=== PATIENT | female | born 1995 | race Caucasian/White ===

== ENCOUNTER 2016-03-08 16:54 | Emergency (ER) | payer OTHER ==
[~2016-03-08] VITALS: Ht 157.4 cm; Wt 68.0 kg
[~2016-03-08 16:54] MED LIST: AMITRIPTYLINE10 MG PO; AMOXICILLIN500 M2 PO; AMOXIL500 MG PO; ATARAX25 MG PO; ATIVAN1 MG PO; AUGMENTIN 875 M1 TA1 PO; BACTRIM DS 8001 TA1 PO; BENADRYL25 MG PO; BENTYL10 MG PO; BUSPIRONE HCL7.5 MG PO; CELEBREX100 MG PO; CEPHALEXIN500 M1 PO; CHANTIX START M1 TAB PO; CHANTIX1 M1 PO; CIPRO250 MG PO; COLACE100 MG PO; Carafate1 GM PO; DEPO PROVER150 MG/M1 IM; ELIMITE 5%60 GM PO; ERYTHROMYCIN OPH1 GM OPH; FEROSUL325 MG PO; Fioricet 325 MG1 TAB PO; GEODON20 MG PO; HYDROCODONE BIT1 T11 PO; HYDROXYZINE HCL25 M1 PO; HYDROXYZINE PAM25 M1 PO; IRON1 CHI; KEFLEX500 M1 PO; LATU20TA PO; LATU40TA1 PO; LIDEX 0.05% CRE15 GM T; LOMOTIL 0.025 M1 TA1 PO; LORATADINE-D 11 EACH PO; LORAZEPAM1 MG PO; MEDROL DOSEPAK4 MG PO; MELATONIN PO; MELATONIN5 M1 SL; MELATONIN5 M7 PO; MOTRIN600 MG PO; MOTRIN800 MG PO; NAPROSYN500 MG PO; NKHM; OMEPRAZOLE D/R20 MG PO; Orphenadrine C100 MG PO; PANTOPRAZOLE SO40 MG PO; PEN-VEE K500 MG PO; PREDNISONE20 M1 PO; PRENATAL VITAMI1 TAB PO; PRENATAL1 TA1 PO; PRILOSEC40 M1 PO; SEIZURE MED PO; TRAZODONE50 MG PO; TRIMOX PO; TYLENOL WITH CO1 TA1 PO; VALIUM2 MG PO; VALIUM5 MG PO; VISTARIL25 M2 PO; VISTARIL25 MG PO; VISTARIL50 MG PO; ZOFRAN 4 MG ED2 TAB PO; ZOFRAN ODT4 MG SL; Zofran4 MG PO
[2016-03-08] MEDS ORDERED: AMITRIPTYLINE25 MG PO (17:13)
[2016-03-08] MEDS ORDERED: OMEPRAZOLE40 MG PO (17:13)
[2016-03-08] MEDS ORDERED: VISTARIL50 MG PO (17:13)
[2016-03-08] MEDS ORDERED: DICYCLOMINE HCL20 MG PO (17:13)
[2016-03-08] MEDS ORDERED: AUGMENTIN 875875 MG PO (17:41)
[2016-03-20] MEDS ORDERED: CIPRODEX 0.3%-7.5 ML OT (14:53)
[2016-03-20] MEDS ORDERED: BACTRIM DS 8001 TA1 PO (14:53)
== END 2016-03-08 18:10 | disposition home or self-care (01) ==
LOC: ED 16:54
DX: H65.113 Acute and subacute allergic otitis media (mucoid) (sanguinous) (serous), bilateral (principal); J02.9 Acute pharyngitis, unspecified; F41.9 Anxiety disorder, unspecified; F32.9 Major depressive disorder, single episode, unspecified; F17.200 Nicotine dependence, unspecified, uncomplicated; Z90.49 Acquired absence of other specified parts of digestive tract

== ENCOUNTER → 2016-05-25 | Outpatient (CLI) | payer OTHER ==
[~2016-05-25] MED LIST changes: +AMITRIPTYLINE25 MG PO; +AUGMENTIN 875875 MG PO; +CIPRODEX 0.3%-7.5 ML OT; +DICYCLOMINE HCL20 MG PO; +OMEPRAZOLE40 MG PO
== END | disposition home or self-care (01) ==
LOC: US 14:00
DX: R10.2 Pelvic and perineal pain (principal)

== ENCOUNTER 2016-06-08 19:59 | Emergency (ER) | payer OTHER ==
[~2016-06-08] VITALS: Ht 157.4 cm; Wt 68.0 kg
[2016-06-08] MEDS ORDERED: BENTYL10 MG PO (20:23)
[2016-06-08] MEDS ORDERED: ETODOLAC400 M2 PO (20:24)
[2016-06-08 20:50] LABS: BILIRUBIN 3+ (NEGATIVE); BLOOD NEGATIVE (NEGATIVE); CLARITY CLEAR (CLEAR); COLOR YELLOW (YELLOW); GLUCOSE NEGATIVE (NEGATIVE); KETONE TRACE (NEGATIVE); LEUKO ESTERASE TRACE (NEGATIVE); NITRITE NEGATIVE (NEGATIVE); PH 5.5 (5.0-9.0); PROTEIN NEGATIVE (NEGATIVE); SPECIFIC GRAVITY 1.025 (1.005-1.030)
[2016-06-08 20:58] LABS: BACTERIA TRACE; EPITHELIAL CELLS 0-2; MUCOUS 1+; URINE REFLEX COMMENT YES (NO)
[2016-06-08] MEDS ORDERED: CYCLOBENZAPRINE5 M3 PO (21:44)
[2016-06-08] MEDS ORDERED: Motrin,Rufen800 MG PO (21:44)
== END 2016-06-08 22:07 | disposition home or self-care (01) ==
LOC: ED 19:59
PROVIDERS: Emergency Medicine Emergency Medical Services
DX: S20.229A Contusion of unspecified back wall of thorax, initial encounter (principal); F41.9 Anxiety disorder, unspecified; F32.9 Major depressive disorder, single episode, unspecified; F17.200 Nicotine dependence, unspecified, uncomplicated; Z90.49 Acquired absence of other specified parts of digestive tract; Z79.899 Other long term (current) drug therapy; W22.03XA Walked into furniture, initial encounter; Y93.89 Activity, other specified; Y92.9 Unspecified place or not applicable; Y99.9 Unspecified external cause status

== ENCOUNTER 2016-06-22 09:49 | Emergency (ER) | payer OTHER ==
[~2016-06-22] VITALS: Ht 157.4 cm; Wt 68.0 kg
[~2016-06-22 09:49] MED LIST changes: +CYCLOBENZAPRINE5 M3 PO; +ETODOLAC400 M2 PO; +Motrin,Rufen800 MG PO
== END 2016-06-22 11:21 | disposition home or self-care (01) ==
LOC: ED 09:49
DX: S20.211A Contusion of right front wall of thorax, initial encounter (principal); F41.9 Anxiety disorder, unspecified; F17.200 Nicotine dependence, unspecified, uncomplicated; Z90.49 Acquired absence of other specified parts of digestive tract; W18.30XA Fall on same level, unspecified, initial encounter; Y93.83 Activity, rough housing and horseplay; Y92.9 Unspecified place or not applicable; Y99.9 Unspecified external cause status

== ENCOUNTER 2016-08-02 17:40 | Emergency (ER) | payer OTHER ==
[~2016-08-02] VITALS: Ht 157.4 cm; Wt 68.0 kg
[2016-08-02] MEDS ORDERED: CEPHALEXIN500 M1 PO (18:22)
== END 2016-08-02 18:33 | disposition home or self-care (01) ==
LOC: ED 17:40
DX: L08.9 Local infection of the skin and subcutaneous tissue, unspecified (principal); B96.89 Other specified bacterial agents as the cause of diseases classified elsewhere; K06.8 Other specified disorders of gingiva and edentulous alveolar ridge; F17.200 Nicotine dependence, unspecified, uncomplicated; Z79.899 Other long term (current) drug therapy

== ENCOUNTER 2016-08-04 10:30 | Emergency (ER) | payer OTHER ==
[~2016-08-04] VITALS: Wt 68.0 kg
[2016-08-04 11:31] LABS: BASO % 0.3 % (0.0-1.0); EOS # 0.1 10*3/uL (0.0-0.4); EOS % 0.8 % (1.0-4.0); HEMATOCRIT 43.3 % (37.0-47.0); HEMOGLOBIN 14.7 g/dl (12.0-16.0); IG # 0.1 10*3/uL (0.0-0.1); LYMPH # 3.4 10*3/uL (1.3-4.4); LYMPH % 28.3 % (27.0-41.0); MEAN CELL VOLUME 83.6 fl (81.0-99.0); MEAN CORPUSCULAR HGB 28.4 pg (27.0-31.0); MEAN CORPUSCULAR HGB CONC 33.9 g/dl (33.0-37.0); MEAN PLATELET VOLUME 9.9 fl (9.6-12.3); MONO # 0.6 10*3/uL (0.1-1.0); MONO % 4.5 % (3.0-9.0); NEUT # 7.9 10*3/uL (2.3-7.9); NEUT % 65.7 % (47.0-73.0); PLATELET COUNT AUTOMATED 173 10*3/uL (130-400); RED BLOOD COUNT 5.18 10*6/uL (4.10-5.10); RED CELL DISTRI WIDTH 13.6 % (0-14.5); WHITE BLOOD COUNT 12.1 10*3/uL (4.8-10.8)
[2016-08-04 11:53] LABS: ALBUMIN 3.6 gm/dl (3.1-4.5); ALKALINE PHOSPHATASE 87 U/L (45-117); BILIRUBIN, TOTAL 0.4 mg/dl (0.2-1.0); BUN 11 mg/dl (7-24); CARBON DIOXIDE 25 mmol/L (21-32); CHLORIDE 107 mmol/L (98-107); EST GLOM FILT AFRICAN AMERICAN > 60 ml/min; GLUCOSE 146 mg/dL (65-99); POTASSIUM 3.8 mmol/L (3.5-5.1); SGOT/AST 61 IU/L (3-35); SGPT/ALT 81 U/L (12-78); SODIUM 140 mmol/L (136-145); TOTAL PROTEIN 6.7 gm/dL (6.4-8.2)
== END 2016-08-04 12:46 | disposition home or self-care (01) ==
LOC: ED 10:30
PROVIDERS: Registered Nurse
DX: R60.9 Edema, unspecified (principal); F17.200 Nicotine dependence, unspecified, uncomplicated; Z90.49 Acquired absence of other specified parts of digestive tract

== ENCOUNTER 2016-08-15 17:55 | Emergency (ER) | payer OTHER ==
[~2016-08-15] VITALS: Wt 77.1 kg
[2016-08-15] MEDS ORDERED: NAPROSYN500 MG PO (18:04)
== END 2016-08-15 19:22 | disposition home or self-care (01) ==
LOC: ED 17:55
DX: S93.431A Sprain of tibiofibular ligament of right ankle, initial encounter (principal); F17.200 Nicotine dependence, unspecified, uncomplicated; Z90.49 Acquired absence of other specified parts of digestive tract; X50.9XXA Other and unspecified overexertion or strenuous movements or postures, initial encounter; Y93.01 Activity, walking, marching and hiking; Y92.9 Unspecified place or not applicable; Y99.9 Unspecified external cause status

== ENCOUNTER 2016-08-23 19:16 | Emergency (ER) | payer OTHER ==
[~2016-08-23] VITALS: Ht 157.4 cm; Wt 77.1 kg
== END 2016-08-23 20:21 | disposition home or self-care (01) ==
LOC: ED 19:16
DX: S93.401A Sprain of unspecified ligament of right ankle, initial encounter (principal); F17.200 Nicotine dependence, unspecified, uncomplicated; Z79.899 Other long term (current) drug therapy; X58.XXXA Exposure to other specified factors, initial encounter; Y93.01 Activity, walking, marching and hiking; Y92.89 Other specified places as the place of occurrence of the external cause; Y99.9 Unspecified external cause status

== ENCOUNTER 2016-08-24 20:47 | Emergency (ER) | payer OTHER ==
[~2016-08-24] VITALS: Ht 157.4 cm; Wt 77.1 kg
== END 2016-08-24 21:31 | disposition home or self-care (01) ==
LOC: ED 20:47
DX: M25.571 Pain in right ankle and joints of right foot (principal); F17.200 Nicotine dependence, unspecified, uncomplicated; Z90.49 Acquired absence of other specified parts of digestive tract; Z79.899 Other long term (current) drug therapy

== ENCOUNTER → 2016-09-13 | Outpatient (CLI) | payer OTHER | END | disposition home or self-care (01) | LOC: US 15:01 | DX: M79.661 Pain in right lower leg (principal); R60.0 Localized edema; R10.9 Unspecified abdominal pain; M79.662 Pain in left lower leg ==

== ENCOUNTER 2016-09-21 20:22 | Emergency (ER) | payer OTHER ==
[~2016-09-21] VITALS: Ht 157.4 cm; Wt 77.1 kg
[2016-09-21] MEDS ORDERED: MOBIC15 MG PO (21:52)
== END 2016-09-21 22:08 | disposition home or self-care (01) ==
LOC: ED 20:22
DX: S93.401A Sprain of unspecified ligament of right ankle, initial encounter (principal); S93.402A Sprain of unspecified ligament of left ankle, initial encounter; Z79.899 Other long term (current) drug therapy; W22.8XXA Striking against or struck by other objects, initial encounter; Y93.9 Activity, unspecified; Y92.9 Unspecified place or not applicable; Y99.9 Unspecified external cause status

== ENCOUNTER 2016-10-05 12:46 | Emergency (ER) | payer OTHER ==
[~2016-10-05] VITALS: Wt 68.0 kg
[~2016-10-05 12:46] MED LIST changes: +MOBIC15 MG PO
[2016-10-05 13:24] LABS: BILIRUBIN NEGATIVE (NEGATIVE); BLOOD NEGATIVE (NEGATIVE); CLARITY CLEAR (CLEAR); COLOR YELLOW (YELLOW); GLUCOSE NEGATIVE (NEGATIVE); KETONE NEGATIVE (NEGATIVE); LEUKO ESTERASE TRACE (NEGATIVE); NITRITE NEGATIVE (NEGATIVE); UROBILINOGEN 0.2 E.U./dl (0.2-1.0)
[2016-10-05 13:32] LABS: BACTERIA 1+
[2016-10-05 15:02] LABS: BASO # 0.1 10*3/uL (0.0-0.1); BASO % 0.4 % (0.0-1.0); EOS # 0.1 10*3/uL (0.0-0.4); EOS % 0.4 % (1.0-4.0); HEMATOCRIT 46.1 % (37.0-47.0); HEMOGLOBIN 15.5 g/dl (12.0-16.0); LYMPH # 3.5 10*3/uL (1.3-4.4); MEAN CELL VOLUME 83.8 fl (81.0-99.0); MEAN CORPUSCULAR HGB 28.2 pg (27.0-31.0); MEAN CORPUSCULAR HGB CONC 33.6 g/dl (33.0-37.0); MEAN PLATELET VOLUME 10.2 fl (9.6-12.3); MONO # 0.5 10*3/uL (0.1-1.0); MONO % 3.9 % (3.0-9.0); NEUT # 8.7 10*3/uL (2.3-7.9); NEUT % 67.8 % (47.0-73.0); PLATELET COUNT AUTOMATED 215 10*3/uL (130-400); RED CELL DISTRI WIDTH 13.6 % (0-14.5); WHITE BLOOD COUNT 12.8 10*3/uL (4.8-10.8)
[2016-10-05 15:18] LABS: ALBUMIN 3.9 gm/dl (3.1-4.5); ALKALINE PHOSPHATASE 96 U/L (45-117); BUN 10 mg/dl (7-24); CHLORIDE 108 mmol/L (98-107); LIPASE 140 U/L (73-393); POTASSIUM 3.5 mmol/L (3.5-5.1); SGOT/AST 15 IU/L (3-35); SGPT/ALT 29 U/L (12-78); SODIUM 139 mmol/L (136-145); TOTAL PROTEIN 7.9 gm/dL (6.4-8.2)
[2016-10-05] MEDS ORDERED: ZOFRAN ODT4 MG SL (16:37)
== END 2016-10-05 18:19 | disposition home or self-care (01) ==
LOC: ED 12:46
PROVIDERS: Emergency Medicine; Physician Assistant
DX: K52.9 Noninfective gastroenteritis and colitis, unspecified (principal); F17.200 Nicotine dependence, unspecified, uncomplicated; Z90.49 Acquired absence of other specified parts of digestive tract; Z79.899 Other long term (current) drug therapy

== ENCOUNTER 2016-10-19 20:11 | Emergency (ER) | payer OTHER ==
[~2016-10-19] VITALS: Ht 157.4 cm; Wt 68.0 kg
== END 2016-10-19 21:48 | disposition home or self-care (01) ==
LOC: ED 20:11
DX: G89.29 Other chronic pain (principal); M79.673 Pain in unspecified foot; F17.200 Nicotine dependence, unspecified, uncomplicated; Z79.899 Other long term (current) drug therapy

== ENCOUNTER 2016-11-23 14:55 | Emergency (ER) | payer OTHER ==
[~2016-11-23] VITALS: Wt 77.1 kg
[2016-11-23 16:05] LABS: BASO % 0.3 % (0.0-1.0); EOS # 0.1 10*3/uL (0.0-0.4); EOS % 0.9 % (1.0-4.0); HEMATOCRIT 42.4 % (37.0-47.0); LYMPH # 4.2 10*3/uL (1.3-4.4); MEAN CELL VOLUME 83.6 fl (81.0-99.0); MEAN CORPUSCULAR HGB 27.6 pg (27.0-31.0); MEAN PLATELET VOLUME 10.7 fl (9.6-12.3); MONO # 0.6 10*3/uL (0.1-1.0); MONO % 4.9 % (3.0-9.0); NEUT # 6.8 10*3/uL (2.3-7.9); NEUT % 57.6 % (47.0-73.0); PLATELET COUNT AUTOMATED 209 10*3/uL (130-400); RED BLOOD COUNT 5.07 10*6/uL (4.10-5.10); WHITE BLOOD COUNT 11.7 10*3/uL (4.8-10.8)
[2016-11-23 16:16] LABS: INTERNATIONAL NORM RATIO 0.9 (2.0-3.5)
[2016-11-23 16:23] LABS: ALBUMIN 3.1 gm/dl (3.1-4.5); ALKALINE PHOSPHATASE 83 U/L (45-117); BUN 8 mg/dl (7-24); CHLORIDE 110 mmol/L (98-107); CREATININE 0.87 mg/dL (0.55-1.02); MAGNESIUM 2.2 mg/dL (1.5-2.1); POTASSIUM 3.7 mmol/L (3.5-5.1); SGOT/AST 36 IU/L (3-35); SGPT/ALT 43 U/L (12-78); SODIUM 143 mmol/L (136-145); TOTAL PROTEIN 6.6 gm/dL (6.4-8.2)
[2016-11-23 16:30] LABS: B-hCG (QUALITATIVE) NEGATIVE (NEGATIVE)
[2016-11-23 16:31] LABS: TROPONIN I < 0.015 ng/ml (<0.045)
[2016-11-23 17:08] LABS: BILIRUBIN NEGATIVE (NEGATIVE); BLOOD NEGATIVE (NEGATIVE); CLARITY SL CLOUDY (CLEAR); COLOR YELLOW (YELLOW); GLUCOSE NEGATIVE (NEGATIVE); KETONE NEGATIVE (NEGATIVE); LEUKO ESTERASE 1+ (NEGATIVE); NITRITE NEGATIVE (NEGATIVE)
[2016-11-23 17:32] LABS: URINE AMPHETAMINES < 1000 (1000ng/ml); URINE BARBITURATES < 200 (200ng/ml); URINE BENZODIAZEPINES > 200 (200ng/ml); URINE CANNABINOIDS (THC) < 50 (50ng/ml); URINE COCAINE < 300 (300ng/ml); URINE METHADONE < 300 (300ng/ml); URINE OPIATES < 300 (300ng/ml)
[2016-11-23 17:33] LABS: URINE PHENCYCLIDINE < 25 (25ng/ml)
[2016-11-23 17:40] LABS: BACTERIA 1+; RBC 0-2 rbc/hpf (0-2)
== END 2016-11-23 20:33 | disposition home or self-care (01) ==
LOC: ED 14:55
PROVIDERS: Internal Medicine
DX: R42 Dizziness and giddiness (principal); F17.210 Nicotine dependence, cigarettes, uncomplicated

== ENCOUNTER → 2016-12-21 | Outpatient (CLI) | payer OTHER ==
[2016-12-21 08:04] LABS: FREE T4 1.4 ng/dl (0.76-1.46)
[2016-12-21 08:14] LABS: THYROID STIM HORMONE (HS) 4.04 uIU/ml (0.358-4.75)
[2016-12-22 07:04] LABS: HEPATITIS B SURFACE AG Negative (Negative); HEPATITIS C VIRUS ANTIBODY <0.1 s/co (0.0-0.9)
== END | disposition home or self-care (01) ==
LOC: LAB 07:04 → US 07:30
PROVIDERS: Family Medicine
DX: K76.0 Fatty (change of) liver, not elsewhere classified (principal); R55 Syncope and collapse; Z90.49 Acquired absence of other specified parts of digestive tract

== ENCOUNTER 2017-01-10 12:21 | Emergency (ER) | payer OTHER ==
[~2017-01-10] VITALS: Wt 79.8 kg
[2017-01-10 13:17] LABS: BILIRUBIN NEGATIVE (NEGATIVE); BLOOD NEGATIVE (NEGATIVE); CLARITY CLEAR (CLEAR); COLOR YELLOW (YELLOW); GLUCOSE NEGATIVE (NEGATIVE); KETONE NEGATIVE (NEGATIVE); LEUKO ESTERASE 2+ (NEGATIVE); NITRITE NEGATIVE (NEGATIVE); PH 5.5 (5.0-9.0); SPECIFIC GRAVITY <= 1.005 (1.005-1.030); UROBILINOGEN 0.2 E.U./dl (0.2-1.0)
[2017-01-10 13:28] LABS: BACTERIA 2+; RBC 0-2 rbc/hpf (0-2); WBC 16-20 wbc/hpf (0-5)
[2017-01-10] MEDS ORDERED: DIFLUCAN150 MG PO (13:44)
[2017-01-10] MEDS ORDERED: OMNICEF300 MG PO (13:44)
[2017-01-10] MEDS ORDERED: PYRIDIUM200 M1 PO (13:44)
== END 2017-01-10 13:53 | disposition home or self-care (01) ==
LOC: ED 12:21
PROVIDERS: Nurse Practitioner Family
DX: H66.92 Otitis media, unspecified, left ear (principal); N39.0 Urinary tract infection, site not specified; F17.200 Nicotine dependence, unspecified, uncomplicated; L29.8 Other pruritus

== ENCOUNTER 2017-03-09 09:38 | Emergency (ER) | payer OTHER ==
[~2017-03-09] VITALS: Wt 72.6 kg
[~2017-03-09 09:38] MED LIST changes: +DIFLUCAN150 MG PO; +OMNICEF300 MG PO; +PYRIDIUM200 M1 PO
[2017-03-09 10:31] LABS: BASO % 0.3 % (0.0-1.0); EOS # 0.1 10*3/uL (0.0-0.4); EOS % 0.6 % (1.0-4.0); HEMATOCRIT 44.2 % (37.0-47.0); LYMPH % 34.3 % (27.0-41.0); MEAN CELL VOLUME 83.1 fl (81.0-99.0); MEAN CORPUSCULAR HGB 28.2 pg (27.0-31.0); MEAN CORPUSCULAR HGB CONC 33.9 g/dl (33.0-37.0); MEAN PLATELET VOLUME 10.6 fl (9.6-12.3); MONO # 0.6 10*3/uL (0.1-1.0); MONO % 5.1 % (3.0-9.0); NEUT # 6.9 10*3/uL (2.3-7.9); NEUT % 59.4 % (47.0-73.0); PLATELET COUNT AUTOMATED 212 10*3/uL (130-400); RED BLOOD COUNT 5.32 10*6/uL (4.10-5.10); RED CELL DISTRI WIDTH 13.9 % (0-14.5); WHITE BLOOD COUNT 11.6 10*3/uL (4.8-10.8)
[2017-03-09 10:45] LABS: ALBUMIN 3.4 gm/dl (3.1-4.5); ALKALINE PHOSPHATASE 78 U/L (45-117); BUN 10 mg/dl (7-24); CHLORIDE 107 mmol/L (98-107); POTASSIUM 3.6 mmol/L (3.5-5.1); SGOT/AST 15 IU/L (3-35); SGPT/ALT 24 U/L (12-78); SODIUM 138 mmol/L (136-145); TOTAL PROTEIN 7.1 gm/dL (6.4-8.2)
[2017-03-09] MEDS ORDERED: PREDNISONE20 M1 PO (12:02)
[2017-03-09] MEDS ORDERED: AMOXICILLIN500 M2 PO (12:02)
[2017-03-09] MEDS ORDERED: ROBITUSSIN DM 105 ML PO (12:02)
== END 2017-03-09 12:03 | disposition home or self-care (01) ==
LOC: ED 09:38
PROVIDERS: Nurse Practitioner Family
DX: J20.9 Acute bronchitis, unspecified (principal); H92.03 Otalgia, bilateral; R07.81 Pleurodynia; F17.200 Nicotine dependence, unspecified, uncomplicated

== ENCOUNTER 2017-04-09 17:21 | Emergency (ER) | payer OTHER ==
[~2017-04-09] VITALS: Ht 157.4 cm; Wt 68.0 kg
[~2017-04-09 17:21] MED LIST changes: +ROBITUSSIN DM 105 ML PO
[2017-04-09] MEDS ORDERED: PREVACID30 M2 PO (17:45)
[2017-04-09 18:26] LABS: BASO % 0.3 % (0.0-1.0); EOS # 0.1 10*3/uL (0.0-0.4); EOS % 0.9 % (1.0-4.0); HEMATOCRIT 42.9 % (37.0-47.0); HEMOGLOBIN 14.2 g/dl (12.0-16.0); LYMPH # 4.1 10*3/uL (1.3-4.4); LYMPH % 34.9 % (27.0-41.0); MEAN CELL VOLUME 84.1 fl (81.0-99.0); MEAN CORPUSCULAR HGB 27.8 pg (27.0-31.0); MEAN CORPUSCULAR HGB CONC 33.1 g/dl (33.0-37.0); MEAN PLATELET VOLUME 10.4 fl (9.6-12.3); MONO # 0.5 10*3/uL (0.1-1.0); MONO % 4.6 % (3.0-9.0); NEUT # 6.9 10*3/uL (2.3-7.9); PLATELET COUNT AUTOMATED 223 10*3/uL (130-400); RED CELL DISTRI WIDTH 13.6 % (0-14.5); WHITE BLOOD COUNT 11.6 10*3/uL (4.8-10.8)
[2017-04-09 18:37] LABS: ACT PARTIAL THROMBO TIME 23.1 SECONDS (20.8-31.5); INTERNATIONAL NORM RATIO 0.9 (2.0-3.5)
[2017-04-09 18:42] LABS: ALBUMIN 3.4 gm/dl (3.1-4.5); ALKALINE PHOSPHATASE 85 U/L (45-117); BUN 5 mg/dl (7-24); CHLORIDE 108 mmol/L (98-107); CREATININE 0.73 mg/dL (0.55-1.02); LIPASE 127 U/L (73-393); POTASSIUM 3.7 mmol/L (3.5-5.1); SGOT/AST 10 IU/L (3-35); SGPT/ALT 22 U/L (12-78); SODIUM 139 mmol/L (136-145); TOTAL PROTEIN 7.1 gm/dL (6.4-8.2); TROPONIN I < 0.015 ng/ml (<0.045)
[2017-04-09 18:57] LABS: BILIRUBIN NEGATIVE (NEGATIVE); BLOOD NEGATIVE (NEGATIVE); CLARITY SL CLOUDY (CLEAR); COLOR YELLOW (YELLOW); GLUCOSE NEGATIVE (NEGATIVE); KETONE NEGATIVE (NEGATIVE); LEUKO ESTERASE 1+ (NEGATIVE); NITRITE NEGATIVE (NEGATIVE); SPECIFIC GRAVITY >= 1.030 (1.005-1.030); UROBILINOGEN 0.2 E.U./dl (0.2-1.0)
[2017-04-09 19:04] LABS: BACTERIA 1+
[2017-04-09 19:07] LABS: URINE AMPHETAMINES < 1000 (1000ng/ml); URINE BARBITURATES < 200 (200ng/ml); URINE BENZODIAZEPINES > 200 (200ng/ml); URINE CANNABINOIDS (THC) < 50 (50ng/ml); URINE COCAINE < 300 (300ng/ml); URINE METHADONE < 300 (300ng/ml); URINE OPIATES < 300 (300ng/ml); URINE PHENCYCLIDINE < 25 (25ng/ml)
[2017-04-09] MEDS ORDERED: CIPRO500 MG PO (20:14)
== END 2017-04-09 20:13 | disposition home or self-care (01) ==
LOC: ED 17:21
PROVIDERS: Nurse Practitioner Family
DX: N39.0 Urinary tract infection, site not specified (principal); R00.0 Tachycardia, unspecified; F41.9 Anxiety disorder, unspecified; F32.9 Major depressive disorder, single episode, unspecified; F17.200 Nicotine dependence, unspecified, uncomplicated; Z90.49 Acquired absence of other specified parts of digestive tract; Z79.899 Other long term (current) drug therapy

== ENCOUNTER 2017-04-13 20:13 | Emergency (ER) | payer OTHER ==
[~2017-04-13] VITALS: Ht 157.4 cm; Wt 68.0 kg
[~2017-04-13 20:13] MED LIST changes: +CIPRO500 MG PO; +PREVACID30 M2 PO
[2017-04-13 20:31] LABS: BILIRUBIN NEGATIVE (NEGATIVE); BLOOD NEGATIVE (NEGATIVE); CLARITY SL CLOUDY (CLEAR); COLOR YELLOW (YELLOW); GLUCOSE NEGATIVE (NEGATIVE); KETONE NEGATIVE (NEGATIVE); LEUKO ESTERASE NEGATIVE (NEGATIVE); NITRITE NEGATIVE (NEGATIVE); UROBILINOGEN 0.2 E.U./dl (0.2-1.0)
[2017-04-13 20:47] LABS: BACTERIA 1+; MUCOUS TRACE; RBC 0-2 rbc/hpf (0-2)
[2017-04-13 20:49] LABS: BASO % 0.4 % (0.0-1.0); EOS # 0.1 10*3/uL (0.0-0.4); EOS % 0.8 % (1.0-4.0); HEMATOCRIT 42.7 % (37.0-47.0); HEMOGLOBIN 14.3 g/dl (12.0-16.0); LYMPH % 35.6 % (27.0-41.0); MEAN CELL VOLUME 83.4 fl (81.0-99.0); MEAN CORPUSCULAR HGB 27.9 pg (27.0-31.0); MEAN CORPUSCULAR HGB CONC 33.5 g/dl (33.0-37.0); MEAN PLATELET VOLUME 10.5 fl (9.6-12.3); MONO # 0.6 10*3/uL (0.1-1.0); MONO % 5.2 % (3.0-9.0); NEUT # 6.5 10*3/uL (2.3-7.9); NEUT % 57.6 % (47.0-73.0); PLATELET COUNT AUTOMATED 208 10*3/uL (130-400); RED BLOOD COUNT 5.12 10*6/uL (4.10-5.10); RED CELL DISTRI WIDTH 13.6 % (0-14.5); WHITE BLOOD COUNT 11.3 10*3/uL (4.8-10.8)
[2017-04-13 21:05] LABS: ALBUMIN 3.4 gm/dl (3.1-4.5); ALKALINE PHOSPHATASE 82 U/L (45-117); BUN 7 mg/dl (7-24); CHLORIDE 106 mmol/L (98-107); CREATININE 0.73 mg/dL (0.55-1.02); LIPASE 129 U/L (73-393); POTASSIUM 3.4 mmol/L (3.5-5.1); SGOT/AST 16 IU/L (3-35); SODIUM 139 mmol/L (136-145); TOTAL PROTEIN 7.1 gm/dL (6.4-8.2)
[2017-04-13 21:06] LABS: SGPT/ALT 22 U/L (12-78)
[2017-04-13] MEDS ORDERED: DICYCLOMINE HYD20 MG PO (22:24)
== END 2017-04-13 22:13 | disposition home or self-care (01) ==
LOC: ED 20:13
PROVIDERS: Emergency Medicine; Physician Assistant
DX: R10.84 Generalized abdominal pain (principal); F17.200 Nicotine dependence, unspecified, uncomplicated; Z79.899 Other long term (current) drug therapy; Z90.49 Acquired absence of other specified parts of digestive tract

== ENCOUNTER 2017-04-27 22:46 | Emergency (ER) | payer OTHER ==
[~2017-04-27] VITALS: Ht 157.4 cm; Wt 77.1 kg
[~2017-04-27 22:46] MED LIST changes: +DICYCLOMINE HYD20 MG PO
[2017-04-27 23:26] LABS: BILIRUBIN NEGATIVE (NEGATIVE); BLOOD 3+ (NEGATIVE); CLARITY CLOUDY (CLEAR); COLOR YELLOW (YELLOW); GLUCOSE NEGATIVE (NEGATIVE); KETONE NEGATIVE (NEGATIVE); LEUKO ESTERASE 2+ (NEGATIVE); NITRITE NEGATIVE (NEGATIVE); PH 5.5 (5.0-9.0); SPECIFIC GRAVITY >= 1.030 (1.005-1.030); UROBILINOGEN 0.2 E.U./dl (0.2-1.0)
[2017-04-27 23:27] LABS: BASO # 0.1 10*3/uL (0.0-0.1); BASO % 0.5 % (0.0-1.0); EOS # 0.1 10*3/uL (0.0-0.4); EOS % 0.5 % (1.0-4.0); HEMATOCRIT 43.2 % (37.0-47.0); HEMOGLOBIN 14.4 g/dl (12.0-16.0); LYMPH # 4.1 10*3/uL (1.3-4.4); LYMPH % 36.3 % (27.0-41.0); MEAN CELL VOLUME 82.6 fl (81.0-99.0); MEAN CORPUSCULAR HGB 27.5 pg (27.0-31.0); MEAN CORPUSCULAR HGB CONC 33.3 g/dl (33.0-37.0); MEAN PLATELET VOLUME 10.6 fl (9.6-12.3); MONO # 0.5 10*3/uL (0.1-1.0); MONO % 4.5 % (3.0-9.0); NEUT # 6.5 10*3/uL (2.3-7.9); NEUT % 57.9 % (47.0-73.0); PLATELET COUNT AUTOMATED 211 10*3/uL (130-400); RED BLOOD COUNT 5.23 10*6/uL (4.10-5.10); RED CELL DISTRI WIDTH 13.9 % (0-14.5); WHITE BLOOD COUNT 11.2 10*3/uL (4.8-10.8)
[2017-04-27 23:33] LABS: BACTERIA 3+; EPITHELIAL CELLS 0-2; RBC TNTC rbc/hpf (0-2); WBC TNTC wbc/hpf (0-5)
[2017-04-27 23:34] LABS: MUCOUS TRACE
[2017-04-28] MEDS ORDERED: CIPRO500 MG PO (01:07)
[2017-04-28] MEDS ORDERED: FLAGYL500 MG PO (01:07)
[2017-05-01 04:03] LABS: GONOCOCCUS BY NAA Negative (Negative)
== END 2017-04-28 01:10 | disposition home or self-care (01) ==
LOC: ED 22:46
PROVIDERS: Emergency Medicine
DX: N39.0 Urinary tract infection, site not specified (principal); A59.9 Trichomoniasis, unspecified; G89.29 Other chronic pain

== ENCOUNTER → 2017-05-26 | Outpatient (CLI) | payer OTHER ==
[~2017-05-26] MED LIST changes: +FLAGYL500 MG PO; +NYST SUSP PO
== END | disposition home or self-care (01) ==
LOC: RAD 14:34 → EDSTATUS 14:37
DX: M54.5 Low back pain (principal)

== ENCOUNTER 2017-05-27 10:16 | Emergency (ER) | payer OTHER ==
[~2017-05-27] VITALS: Ht 162.5 cm; Wt 77.1 kg
[~2017-05-27 10:16] MED LIST changes: -NYST SUSP PO
[2017-05-27] MEDS ORDERED: AMOXICILLIN500 M2 PO (11:10)
[2017-05-27] MEDS ORDERED: NYST SUSP PO (11:10)
== END 2017-05-27 11:18 | disposition home or self-care (01) ==
LOC: ED 10:16
DX: B37.0 Candidal stomatitis (principal); J06.9 Acute upper respiratory infection, unspecified; Z79.899 Other long term (current) drug therapy

== ENCOUNTER 2017-06-07 17:19 | Emergency (ER) | payer OTHER ==
[~2017-06-07] VITALS: Ht 160 cm; Wt 81.2 kg
== END 2017-06-07 18:01 | disposition home or self-care (01) ==
LOC: ED 17:19
DX: L25.1 Unspecified contact dermatitis due to drugs in contact with skin (principal); F17.200 Nicotine dependence, unspecified, uncomplicated; Z79.899 Other long term (current) drug therapy

== ENCOUNTER → 2017-06-07 | Outpatient (CLI) | payer OTHER ==
[~2017-06-07] MED LIST changes: +NYST SUSP PO
--- NOTE | ~2017-06-07 | HM ---
[place], [place] HOLTER MONITOR REPORT NAME: GISSELLE RODRIGUES UNIT #: [id number] ROOM: DOCTOR: MAGDALENE FINCH MD BIRTHDATE: [birth year] DOS: A 24-HOUR HOLTER MONITOR REPORT The study was recorded from June 07 through 06/08/2017. The data was analyzed and the report was dictated on 06/08/2017. INDICATIONS: Tachycardia. FINDINGS: The patient was in sinus tachycardia or sinus rhythm during the entire examination. Her average heart rate was 121 in sinus rhythm. Her heart rate varied from 65 beats per minute at 4:08 a.m. to 162 beats per minute at 8:16 a.m. No ventricular arrhythmias were recorded. There was some sinus arrhythmia and rare PACs were seen. No diary was submitted. IMPRESSION: Sinus tachycardia with average 24-hour heart rate of 121. MAGDALENE FINCH MD CM:HOLTER:HOLTER MONITOR REPORT 13 [phone] MAGDALENE FINCH MD
== END | disposition home or self-care (01) ==
LOC: LAB 00:37 → CARD 10:00 → LAB 10:00
PROVIDERS: Internal Medicine Cardiovascular Disease
DX: R00.2 Palpitations (principal); R00.0 Tachycardia, unspecified

== ENCOUNTER 2017-06-09 22:06 | Emergency (ER) | payer OTHER ==
[~2017-06-09] VITALS: Ht 160 cm; Wt 77.1 kg
[2017-06-09 23:09] LABS: BASO % 0.4 % (0.0-1.0); EOS # 0.1 10*3/uL (0.0-0.4); EOS % 1.1 % (1.0-4.0); HEMATOCRIT 42.4 % (37.0-47.0); HEMOGLOBIN 13.8 g/dl (12.0-16.0); LYMPH # 4.7 10*3/uL (1.3-4.4); LYMPH % 41.9 % (27.0-41.0); MEAN CELL VOLUME 83.5 fl (81.0-99.0); MEAN CORPUSCULAR HGB 27.2 pg (27.0-31.0); MEAN CORPUSCULAR HGB CONC 32.5 g/dl (33.0-37.0); MEAN PLATELET VOLUME 10.2 fl (9.6-12.3); MONO # 0.6 10*3/uL (0.1-1.0); MONO % 5.6 % (3.0-9.0); NEUT # 5.7 10*3/uL (2.3-7.9); NEUT % 50.6 % (47.0-73.0); PLATELET COUNT AUTOMATED 201 10*3/uL (130-400); RED BLOOD COUNT 5.08 10*6/uL (4.10-5.10); RED CELL DISTRI WIDTH 13.8 % (0-14.5); WHITE BLOOD COUNT 11.2 10*3/uL (4.8-10.8)
[2017-06-09 23:21] LABS: INTERNATIONAL NORM RATIO 0.9 (2.0-3.5)
[2017-06-09 23:25] LABS: ALBUMIN 3.6 gm/dl (3.1-4.5); ALKALINE PHOSPHATASE 91 U/L (45-117); BUN 8 mg/dl (7-24); CHLORIDE 106 mmol/L (98-107); CREATININE 0.73 mg/dL (0.55-1.02); POTASSIUM 3.5 mmol/L (3.5-5.1); SGOT/AST 15 IU/L (3-35); SGPT/ALT 28 U/L (12-78); SODIUM 140 mmol/L (136-145); TOTAL PROTEIN 7.1 gm/dL (6.4-8.2)
[2017-06-09 23:26] LABS: TROPONIN I < 0.015 ng/ml (<0.045)
== END 2017-06-09 23:59 | disposition home or self-care (01) ==
LOC: ED 22:06
PROVIDERS: Physician Assistant
DX: R00.0 Tachycardia, unspecified (principal)

== ENCOUNTER 2017-06-29 12:35 | Emergency (ER) | payer OTHER ==
[~2017-06-29] VITALS: Ht 160 cm; Wt 77.1 kg
[2017-06-29 13:26] LABS: BASO # 0.1 10*3/uL (0.0-0.1); BASO % 0.5 % (0.0-1.0); EOS # 0.1 10*3/uL (0.0-0.4); EOS % 0.8 % (1.0-4.0); HEMATOCRIT 41.6 % (37.0-47.0); LYMPH # 3.9 10*3/uL (1.3-4.4); LYMPH % 36.7 % (27.0-41.0); MEAN CELL VOLUME 81.9 fl (81.0-99.0); MEAN CORPUSCULAR HGB 27.6 pg (27.0-31.0); MEAN CORPUSCULAR HGB CONC 33.7 g/dl (33.0-37.0); MEAN PLATELET VOLUME 10.5 fl (9.6-12.3); MONO # 0.5 10*3/uL (0.1-1.0); MONO % 4.9 % (3.0-9.0); NEUT % 56.7 % (47.0-73.0); PLATELET COUNT AUTOMATED 222 10*3/uL (130-400); RED BLOOD COUNT 5.08 10*6/uL (4.10-5.10); RED CELL DISTRI WIDTH 13.9 % (0-14.5); WHITE BLOOD COUNT 10.7 10*3/uL (4.8-10.8)
[2017-06-29 13:35] LABS: ACT PARTIAL THROMBO TIME 23.7 SECONDS (20.8-31.5); INTERNATIONAL NORM RATIO 0.9 (2.0-3.5)
[2017-06-29 13:42] LABS: ALBUMIN 3.4 gm/dl (3.1-4.5); ALKALINE PHOSPHATASE 83 U/L (45-117); BUN 6 mg/dl (7-24); CHLORIDE 108 mmol/L (98-107); CREATININE 0.73 mg/dL (0.55-1.02); LIPASE 117 U/L (73-393); POTASSIUM 3.7 mmol/L (3.5-5.1); SGOT/AST 11 IU/L (3-35); SGPT/ALT 22 U/L (12-78); SODIUM 139 mmol/L (136-145); TOTAL PROTEIN 6.7 gm/dL (6.4-8.2)
[2017-06-29 13:43] LABS: BETA-HCG, QUANT < 1.0 mIU/mL (1-3); TROPONIN I < 0.015 ng/ml (<0.045)
== END 2017-06-29 14:38 | disposition home or self-care (01) ==
LOC: ED 12:35
PROVIDERS: Emergency Medicine
DX: R60.0 Localized edema (principal); F32.9 Major depressive disorder, single episode, unspecified; F41.9 Anxiety disorder, unspecified; Z79.899 Other long term (current) drug therapy

== ENCOUNTER 2017-07-21 10:29 | Emergency (ER) | payer OTHER ==
[~2017-07-21] VITALS: Ht 160 cm; Wt 77.1 kg
[2017-07-21] MEDS ORDERED: METOPROLOL SUCC50 M1 PO (10:42)
[2017-07-21 10:57] LABS: BASO % 0.4 % (0.0-1.0); EOS # 0.1 10*3/uL (0.0-0.4); EOS % 0.9 % (1.0-4.0); HEMATOCRIT 43.3 % (37.0-47.0); HEMOGLOBIN 14.2 g/dl (12.0-16.0); LYMPH # 3.3 10*3/uL (1.3-4.4); LYMPH % 32.2 % (27.0-41.0); MEAN CELL VOLUME 81.5 fl (81.0-99.0); MEAN CORPUSCULAR HGB 26.7 pg (27.0-31.0); MEAN CORPUSCULAR HGB CONC 32.8 g/dl (33.0-37.0); MEAN PLATELET VOLUME 10.2 fl (9.6-12.3); MONO # 0.5 10*3/uL (0.1-1.0); NEUT # 6.3 10*3/uL (2.3-7.9); NEUT % 61.1 % (47.0-73.0); PLATELET COUNT AUTOMATED 223 10*3/uL (130-400); RED BLOOD COUNT 5.31 10*6/uL (4.10-5.10); RED CELL DISTRI WIDTH 14.1 % (0-14.5); WHITE BLOOD COUNT 10.3 10*3/uL (4.8-10.8)
[2017-07-21 11:03] LABS: BILIRUBIN NEGATIVE (NEGATIVE); BLOOD 3+ (NEGATIVE); CLARITY SL CLOUDY (CLEAR); COLOR YELLOW (YELLOW); GLUCOSE NEGATIVE (NEGATIVE); KETONE NEGATIVE (NEGATIVE); LEUKO ESTERASE 2+ (NEGATIVE); NITRITE NEGATIVE (NEGATIVE); PH 5.5 (5.0-9.0); SPECIFIC GRAVITY 1.025 (1.005-1.030); UROBILINOGEN 0.2 E.U./dl (0.2-1.0)
[2017-07-21 11:11] LABS: ALBUMIN 3.5 gm/dl (3.1-4.5); ALKALINE PHOSPHATASE 97 U/L (45-117); BUN 6 mg/dl (7-24); CHLORIDE 105 mmol/L (98-107); CREATININE 0.89 mg/dL (0.55-1.02); POTASSIUM 3.5 mmol/L (3.5-5.1); SGOT/AST 27 IU/L (3-35); SGPT/ALT 49 U/L (12-78); SODIUM 138 mmol/L (136-145); TOTAL PROTEIN 7.4 gm/dL (6.4-8.2)
[2017-07-21 11:14] LABS: BETA-HCG, QUANT < 1.0 mIU/mL (1-3)
[2017-07-21 11:15] LABS: BACTERIA 2+; EPITHELIAL CELLS 16-20; WBC 16-20 wbc/hpf (0-5)
[2017-07-21] MEDS ORDERED: SEPTDS PO (11:34)
[2017-07-21] MEDS ORDERED: ZOFRAN ODT4 MG SL (11:50)
== END 2017-07-21 11:41 | disposition home or self-care (01) ==
LOC: ED 10:29
PROVIDERS: Emergency Medicine
DX: N39.0 Urinary tract infection, site not specified (principal); F17.200 Nicotine dependence, unspecified, uncomplicated; Z91.041 Radiographic dye allergy status; Z79.899 Other long term (current) drug therapy

== ENCOUNTER 2017-08-11 12:07 | Emergency (ER) | payer OTHER ==
[~2017-08-11] VITALS: Ht 162.5 cm; Wt 77.1 kg
[~2017-08-11 12:07] MED LIST changes: +METOPROLOL SUCC50 M1 PO; +SEPTDS PO
[2017-08-11 12:33] LABS: BASO % 0.4 % (0.0-1.0); EOS # 0.1 10*3/uL (0.0-0.4); EOS % 0.9 % (1.0-4.0); HEMATOCRIT 40.9 % (37.0-47.0); HEMOGLOBIN 13.9 g/dl (12.0-16.0); LYMPH # 3.8 10*3/uL (1.3-4.4); LYMPH % 35.8 % (27.0-41.0); MEAN CELL VOLUME 79.9 fl (81.0-99.0); MEAN CORPUSCULAR HGB 27.1 pg (27.0-31.0); MEAN PLATELET VOLUME 10.5 fl (9.6-12.3); MONO # 0.5 10*3/uL (0.1-1.0); MONO % 4.4 % (3.0-9.0); NEUT # 6.2 10*3/uL (2.3-7.9); NEUT % 58.1 % (47.0-73.0); PLATELET COUNT AUTOMATED 197 10*3/uL (130-400); RED BLOOD COUNT 5.12 10*6/uL (4.10-5.10); RED CELL DISTRI WIDTH 14.4 % (0-14.5); WHITE BLOOD COUNT 10.7 10*3/uL (4.8-10.8)
[2017-08-11 12:34] LABS: BILIRUBIN NEGATIVE (NEGATIVE); BLOOD NEGATIVE (NEGATIVE); CLARITY SL CLOUDY (CLEAR); COLOR YELLOW (YELLOW); GLUCOSE NEGATIVE (NEGATIVE); KETONE NEGATIVE (NEGATIVE); LEUKO ESTERASE NEGATIVE (NEGATIVE); NITRITE NEGATIVE (NEGATIVE); SPECIFIC GRAVITY >= 1.030 (1.005-1.030)
[2017-08-11 12:42] LABS: BACTERIA TRACE
[2017-08-11 12:49] LABS: ALBUMIN 3.3 gm/dl (3.1-4.5); ALKALINE PHOSPHATASE 89 U/L (45-117); BUN 7 mg/dl (7-24); CHLORIDE 109 mmol/L (98-107); CREATININE 0.72 mg/dL (0.55-1.02); LIPASE 183 U/L (73-393); POTASSIUM 3.8 mmol/L (3.5-5.1); SGOT/AST 29 IU/L (3-35); SGPT/ALT 49 U/L (12-78); SODIUM 141 mmol/L (136-145)
[2017-08-11] MEDS ORDERED: CLARITIN10 MG PO (13:07)
[2017-08-11] MEDS ORDERED: ZOFRAN4 MG PO (13:07)
[2017-08-11] MEDS ORDERED: NASACORT16.9 ML NAS (13:07)
[2017-09-29] MEDS ORDERED: Motrin,Rufen800 MG PO (23:37)
== END 2017-08-11 13:45 | disposition home or self-care (01) ==
LOC: ED 12:07
PROVIDERS: Nurse Practitioner Family
DX: B34.9 Viral infection, unspecified (principal); R19.7 Diarrhea, unspecified; R10.84 Generalized abdominal pain; Z91.041 Radiographic dye allergy status; Z79.899 Other long term (current) drug therapy

== ENCOUNTER → 2017-08-14 | Outpatient (CLI) | payer OTHER ==
[~2017-08-14] MED LIST changes: +CLARITIN10 MG PO; +KENALOG 0.025%15 GM T; +NASACORT16.9 ML NAS; +ZOFRAN4 MG PO
== END | disposition home or self-care (01) ==
LOC: US 08-07 02:48
DX: R10.2 Pelvic and perineal pain (principal)

== ENCOUNTER 2017-08-22 08:46 | Emergency (ER) | payer OTHER ==
[~2017-08-22] VITALS: Wt 77.1 kg
[~2017-08-22 08:46] MED LIST changes: -KENALOG 0.025%15 GM T
[2017-08-22] MEDS ORDERED: VISTARIL50 MG PO (08:49)
[2017-09-29] MEDS ORDERED: Motrin,Rufen800 MG PO (23:37)
== END 2017-08-22 09:59 | disposition home or self-care (01) ==
LOC: ED 08:46
DX: T23.151A Burn of first degree of right palm, initial encounter (principal); T23.152A Burn of first degree of left palm, initial encounter; T54.91XA Toxic effect of unspecified corrosive substance, accidental (unintentional), initial encounter; I10 Essential (primary) hypertension; F17.200 Nicotine dependence, unspecified, uncomplicated; Z79.899 Other long term (current) drug therapy; Z91.041 Radiographic dye allergy status; Y92.89 Other specified places as the place of occurrence of the external cause

== ENCOUNTER 2017-09-01 22:52 | Emergency (ER) | payer OTHER ==
[~2017-09-01] VITALS: Ht 162.5 cm; Wt 77.1 kg
[2017-09-01] MEDS ORDERED: KENALOG 0.025%15 GM T (23:13)
[2017-09-29] MEDS ORDERED: Motrin,Rufen800 MG PO (23:37)
== END 2017-09-01 23:24 | disposition home or self-care (01) ==
LOC: ED 22:52
DX: R21 Rash and other nonspecific skin eruption (principal); L98.8 Other specified disorders of the skin and subcutaneous tissue; F17.200 Nicotine dependence, unspecified, uncomplicated; Z90.49 Acquired absence of other specified parts of digestive tract; Z79.899 Other long term (current) drug therapy; Z91.041 Radiographic dye allergy status

== ENCOUNTER 2017-11-21 23:24 | Emergency (ER) | payer OTHER ==
[~2017-11-21] VITALS: Ht 157.4 cm; Wt 81.6 kg
[~2017-11-21 23:24] MED LIST changes: +KENALOG 0.025%15 GM T
[2017-12-19] MEDS ORDERED: PAROXETINE HCL20 MG PO (11:15)
[2017-12-19] MEDS ORDERED: BENTYL PO (11:17)
[2017-12-19] MEDS ORDERED: PREVACID30 M2 PO (11:17)
[2017-12-19] MEDS ORDERED: CLOMIPRAMINE HC25 MG PO (11:31)
== END 2017-11-22 03:09 | disposition home or self-care (01) ==
LOC: ED 23:24
DX: R51 Headache (principal); R19.7 Diarrhea, unspecified; R11.2 Nausea with vomiting, unspecified; H53.149 Visual discomfort, unspecified; Z91.041 Radiographic dye allergy status; Z79.899 Other long term (current) drug therapy; Z90.49 Acquired absence of other specified parts of digestive tract; G89.29 Other chronic pain

== ENCOUNTER → 2017-11-29 | Outpatient (CLI) | payer OTHER ==
[~2017-11-29] MED LIST changes: +BENTYL PO; +CLOMIPRAMINE HC25 MG PO; +PAROXETINE HCL20 MG PO
== END | disposition home or self-care (01) ==
LOC: CANPRECLI → RESCLI 14:11
DX: J45.909 Unspecified asthma, uncomplicated (principal); H90.3 Sensorineural hearing loss, bilateral; R00.0 Tachycardia, unspecified; J02.9 Acute pharyngitis, unspecified; E66.9 Obesity, unspecified; G43.019 Migraine without aura, intractable, without status migrainosus; Z91.09 Other allergy status, other than to drugs and biological substances; Z79.899 Other long term (current) drug therapy; Z87.891 Personal history of nicotine dependence

== ENCOUNTER 2018-04-17 13:17 | Emergency (ER) | payer OTHER ==
[~2018-04-17] VITALS: Ht 157.4 cm; Wt 75.3 kg
[~2018-04-17 13:17] MED LIST changes: +VIBRAMYCIN100 MG PO
[2018-04-17] MEDS ORDERED: AMOXICILLIN500 M2 PO (14:11)
[2018-06-22] MEDS ORDERED: DICYCLOMINE HCL10 MG PO (02:15)
[2018-06-22] MEDS ORDERED: MACROBID100 M1 PO (07:47)
== END 2018-04-17 14:20 | disposition home or self-care (01) ==
LOC: ED 13:17
DX: J02.9 Acute pharyngitis, unspecified (principal); Z91.041 Radiographic dye allergy status; Z91.018 Allergy to other foods; Z79.2 Long term (current) use of antibiotics; Z79.899 Other long term (current) drug therapy; Z90.49 Acquired absence of other specified parts of digestive tract

== ENCOUNTER 2018-05-06 14:50 | Emergency (ER) | payer OTHER ==
[~2018-05-06] VITALS: Ht 160 cm; Wt 75.3 kg
[2018-05-06 15:44] LABS: BILIRUBIN NEGATIVE (NEGATIVE); BLOOD NEGATIVE (NEGATIVE); CLARITY TURBID (CLEAR); COLOR YELLOW (YELLOW); GLUCOSE NEGATIVE (NEGATIVE); KETONE TRACE (NEGATIVE); LEUKO ESTERASE TRACE (NEGATIVE); NITRITE NEGATIVE (NEGATIVE); SPECIFIC GRAVITY >= 1.030 (1.005-1.030); UROBILINOGEN 0.2 E.U./dl (0.2-1.0)
[2018-05-06] MEDS ORDERED: CEPHALEXIN500 M1 PO (16:29)
[2018-06-22] MEDS ORDERED: DICYCLOMINE HCL10 MG PO (02:15)
[2018-06-22] MEDS ORDERED: MACROBID100 M1 PO (07:47)
== END 2018-05-06 16:33 | disposition home or self-care (01) ==
LOC: ED 14:50
PROVIDERS: Nurse Practitioner Family
DX: N75.0 Cyst of Bartholin's gland (principal); N39.0 Urinary tract infection, site not specified; Z79.899 Other long term (current) drug therapy; Z91.041 Radiographic dye allergy status; Z91.018 Allergy to other foods

== ENCOUNTER 2018-06-23 11:20 | Emergency (ER) | payer OTHER ==
[~2018-06-23] VITALS: Ht 160 cm; Wt 71.2 kg
[~2018-06-23 11:20] MED LIST changes: +DICYCLOMINE HCL10 MG PO; +MACROBID100 M1 PO
== END 2018-06-23 11:54 | disposition home or self-care (01) ==
LOC: ED 11:20
DX: B37.0 Candidal stomatitis (principal); F17.210 Nicotine dependence, cigarettes, uncomplicated; Z90.49 Acquired absence of other specified parts of digestive tract; Z79.899 Other long term (current) drug therapy; Z91.041 Radiographic dye allergy status; Z91.018 Allergy to other foods

== ENCOUNTER → 2018-10-23 | Outpatient (CLI) | payer OTHER | END | disposition home or self-care (01) | LOC: CARD 00:31 | DX: Z87.898 Personal history of other specified conditions (principal) ==

== ENCOUNTER 2018-11-26 18:59 | Emergency (ER) | payer OTHER ==
[~2018-11-26] VITALS: Ht 157.4 cm; Wt 72.6 kg
--- NOTE | ~2018-11-26 | EKG ---
[place], [place] ELECTROCARDIOGRAM REPORT NAME: GISSELLE RODRIGUES UNIT #: [id number] ROOM: DOCTOR: EPIPHANY DRAFT REPORT BIRTHDATE: [address] 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
[2018-11-26 19:34] LABS: HEMOGLOBIN 14.5 g/dl (12.0-16.0); MEAN CELL VOLUME 85.1 fl (81.0-99.0); MEAN PLATELET VOLUME 10.3 fl (9.6-12.3); PLATELET COUNT AUTOMATED 221 10*3/uL (130-400); RED BLOOD COUNT 5.17 10*6/uL (4.10-5.10); RED CELL DISTRI WIDTH 13.7 % (0-14.5); WHITE BLOOD COUNT 12.2 10*3/uL (4.8-10.8)
[2018-11-26 19:46] LABS: ACT PARTIAL THROMBO TIME 25.9 SECONDS (20.0-32.1); INTERNATIONAL NORM RATIO 0.9 (2.0-3.5)
[2018-11-26 19:53] LABS: ALBUMIN 3.7 gm/dl (3.1-4.5); ALKALINE PHOSPHATASE 79 U/L (45-117); BUN 10 mg/dl (7-24); CHLORIDE 110 mmol/L (98-107); CREATININE 0.86 mg/dL (0.55-1.02); POTASSIUM 3.1 mmol/L (3.5-5.1); SGOT/AST 14 IU/L (3-35); SGPT/ALT 39 U/L (12-78); SODIUM 141 mmol/L (136-145); TOTAL PROTEIN 7.5 gm/dL (6.4-8.2)
[2018-11-26 19:56] LABS: TROPONIN I < 0.015 ng/ml (<0.045)
[2018-11-26 19:58] LABS: ATYPICAL LYMPHS 5 % (0-0); TOTAL CELLS COUNTED 100 #CELLS
[2018-11-26 19:59] LABS: PLATELET SUFFICIENCY NORMAL (NORMAL)
== END 2018-11-26 21:10 | disposition home or self-care (01) ==
LOC: ED 18:59
PROVIDERS: Emergency Medicine
DX: R07.89 Other chest pain (principal); F17.210 Nicotine dependence, cigarettes, uncomplicated; Z90.49 Acquired absence of other specified parts of digestive tract; Z79.899 Other long term (current) drug therapy; Z91.041 Radiographic dye allergy status; Z91.018 Allergy to other foods

== ENCOUNTER → 2018-11-28 | Outpatient (CLI) | payer OTHER ==
[~2018-11-28] MED LIST changes: +PHENERGAN25 M3 PO
--- NOTE | ~2018-11-28 | HM ---
[place], [place] HOLTER MONITOR REPORT NAME: GISSELLE RODRIGUES UNIT #: [id number] ROOM: DOCTOR: HAO ARCHULETA BIRTHDATE: [birth year] DOS: 11/29/2018 This is a 24-hour Holter monitor. TEST DATE: 11/28/2018. IMPRESSION: 1. Baseline rhythm is normal sinus/sinus tachycardia. 2. Average heart rate 112 beats per minute, with a maximum of 164 beats per minute. 3. Extremely rare PACs and PVCs. 4. No VT or SVT. 5. No pauses or AV block. 6. No diary returned. Dr. HAO ARCHULETA MD CM:HOLTER:HOLTER MONITOR REPORT [id number] HAO ARCHULETA
== END | disposition home or self-care (01) ==
LOC: CARD 00:52
DX: R00.0 Tachycardia, unspecified (principal)

== ENCOUNTER 2018-12-18 14:14 | Emergency (ER) | payer OTHER ==
[~2018-12-18] VITALS: Ht 157.4 cm; Wt 77.1 kg
[~2018-12-18 14:14] MED LIST changes: -PHENERGAN25 M3 PO
[2018-12-18 14:55] LABS: BASO # 0.1 10*3/uL (0.0-0.1); BASO % 0.4 % (0.0-1.0); EOS # 0.1 10*3/uL (0.0-0.4); EOS % 1.1 % (1.0-4.0); HEMATOCRIT 45.3 % (37.0-47.0); HEMOGLOBIN 15.1 g/dl (12.0-16.0); LYMPH # 4.5 10*3/uL (1.3-4.4); LYMPH % 36.7 % (27.0-41.0); MEAN CELL VOLUME 85.5 fl (81.0-99.0); MEAN CORPUSCULAR HGB 28.5 pg (27.0-31.0); MEAN CORPUSCULAR HGB CONC 33.3 g/dl (33.0-37.0); MEAN PLATELET VOLUME 10.3 fl (9.6-12.3); MONO # 0.6 10*3/uL (0.1-1.0); MONO % 4.6 % (3.0-9.0); NEUT # 6.9 10*3/uL (2.3-7.9); NEUT % 56.9 % (47.0-73.0); PLATELET COUNT AUTOMATED 207 10*3/uL (130-400); RED CELL DISTRI WIDTH 13.5 % (0-14.5); WHITE BLOOD COUNT 12.2 10*3/uL (4.8-10.8)
[2018-12-18 15:16] LABS: ALBUMIN 3.5 gm/dl (3.1-4.5); ALKALINE PHOSPHATASE 75 U/L (45-117); BUN 7 mg/dl (7-24); CHLORIDE 110 mmol/L (98-107); SGOT/AST 14 IU/L (3-35); SGPT/ALT 31 U/L (12-78); SODIUM 141 mmol/L (136-145); TOTAL PROTEIN 7.3 gm/dL (6.4-8.2)
[2018-12-18 15:19] LABS: BETA-HCG, QUANT < 1.0 mIU/mL (1-3)
[2018-12-18] MEDS ORDERED: PHENERGAN25 M3 PO (16:06)
[2018-12-18] MEDS ORDERED: Motrin,Rufen800 MG PO (16:06)
== END 2018-12-18 16:45 | disposition home or self-care (01) ==
LOC: ED 14:14
PROVIDERS: Emergency Medicine
DX: S06.0X0A Concussion without loss of consciousness, initial encounter (principal); R42 Dizziness and giddiness; I10 Essential (primary) hypertension; G89.29 Other chronic pain; F17.210 Nicotine dependence, cigarettes, uncomplicated; Z91.041 Radiographic dye allergy status; Z91.018 Allergy to other foods; Z79.2 Long term (current) use of antibiotics; Z79.899 Other long term (current) drug therapy; W22.09XA Striking against other stationary object, initial encounter; Y93.89 Activity, other specified; Y92.098 Other place in other non-institutional residence as the place of occurrence of the external cause; Y99.8 Other external cause status

== ENCOUNTER 2019-05-09 10:42 | Emergency (ER) | payer OTHER ==
[~2019-05-09] VITALS: Ht 157.4 cm; Wt 72.6 kg
[~2019-05-09 10:42] MED LIST changes: +PHENERGAN25 M3 PO
== END 2019-05-09 12:28 | disposition home or self-care (01) ==
LOC: ED 10:42
DX: B34.9 Viral infection, unspecified (principal); F17.210 Nicotine dependence, cigarettes, uncomplicated; Z91.041 Radiographic dye allergy status; Z79.899 Other long term (current) drug therapy

== ENCOUNTER 2019-06-29 13:13 | Emergency (ER) | payer OTHER ==
[~2019-06-29] VITALS: Ht 157.4 cm; Wt 72.6 kg
[2019-06-29] MEDS ORDERED: MEDROL DOSEPAK4 MG PO (14:24)
[2019-06-29] MEDS ORDERED: KENALOG 0.1%80 GM T (14:24)
== END 2019-06-29 14:36 | disposition home or self-care (01) ==
LOC: ED 13:13
DX: R21 Rash and other nonspecific skin eruption (principal); Z91.041 Radiographic dye allergy status; Z91.018 Allergy to other foods; Z79.899 Other long term (current) drug therapy; Z87.891 Personal history of nicotine dependence

== ENCOUNTER 2019-12-09 11:34 | Emergency (ER) | payer OTHER ==
[~2019-12-09] VITALS: Wt 72.6 kg
[~2019-12-09 11:34] MED LIST changes: +KENALOG 0.1%80 GM T
[2019-12-09 12:09] LABS: BILIRUBIN Negative (Negative); BLOOD Negative (Negative); CLARITY Cloudy (Clear); COLOR Dark Yellow (Yellow); GLUCOSE Negative (Negative); KETONE Negative (Negative); LEUKO ESTERASE 1+ (Negative); NITRITE Negative (Negative); PH 7.5 (4.5-8.0); SPECIFIC GRAVITY 1.025 (1.001-1.030); UROBILINOGEN 0.2 E.U./dl (0.0-1.0)
[2019-12-09 12:20] LABS: BACTERIA 3+; EPITHELIAL CELLS 16-20
[2019-12-09] MEDS ORDERED: MEDROL DOSEPAK4 MG PO (12:46)
[2019-12-09] MEDS ORDERED: METHOCARBAMOL500 M1 PO (12:46)
[2019-12-09] MEDS ORDERED: NAPROSYN500 MG PO (12:46)
== END 2019-12-09 13:10 | disposition home or self-care (01) ==
LOC: ED 11:34
PROVIDERS: Emergency Medicine
DX: S39.012A Strain of muscle, fascia and tendon of lower back, initial encounter (principal); F17.210 Nicotine dependence, cigarettes, uncomplicated; Z91.041 Radiographic dye allergy status; Z79.899 Other long term (current) drug therapy; W01.0XXA Fall on same level from slipping, tripping and stumbling without subsequent striking against object, initial encounter; Y93.89 Activity, other specified; Y92.89 Other specified places as the place of occurrence of the external cause; Y99.8 Other external cause status

== ENCOUNTER 2020-01-08 12:35 | Emergency (ER) | payer OTHER ==
[~2020-01-08] VITALS: Ht 160 cm; Wt 72.6 kg
[~2020-01-08 12:35] MED LIST changes: +METHOCARBAMOL500 M1 PO
== END 2020-01-08 15:10 | disposition home or self-care (01) ==
LOC: ED 12:35
DX: J06.9 Acute upper respiratory infection, unspecified (principal); R05 Cough; Z91.041 Radiographic dye allergy status; Z79.899 Other long term (current) drug therapy; Z91.018 Allergy to other foods

== ENCOUNTER → 2020-04-06 | Outpatient (CLI) | payer OTHER ==
[~2020-04-06] MED LIST changes: +AMITRIPTYLINE50 MG PO; +CORLANOR5 MG PO; +GABAPENTIN100 M2 PO; +HYDROXYZINE PAM50 MG PO; +MELATONIN10 M3 PO; +ONDANSETRON HYDR4 MG PO
== END | disposition home or self-care (01) ==
LOC: COVID19 12:04
PROVIDERS: ATTEND Internal Medicine Gastroenterology
DX: Z01.812 Encounter for preprocedural laboratory examination (principal); Z20.822 Contact with and (suspected) exposure to COVID-19

== ENCOUNTER → 2020-05-13 | Outpatient (CLI) | payer OTHER ==
[2020-05-13 08:44] LABS: BASO % 0.4 % (0.0-1.0); EOS # 0.1 10*3/uL (0.0-0.4); EOS % 0.9 % (1.0-4.0); HEMATOCRIT 43.6 % (37.0-47.0); LYMPH # 3.8 10*3/uL (1.3-4.4); LYMPH % 33.7 % (27.0-41.0); MEAN CELL VOLUME 81.8 fl (81.0-99.0); MEAN PLATELET VOLUME 10.1 fl (9.6-12.3); MONO # 0.4 10*3/uL (0.1-1.0); MONO % 3.9 % (3.0-9.0); NEUT # 6.9 10*3/uL (2.3-7.9); NEUT % 60.7 % (47.0-73.0); PLATELET COUNT AUTOMATED 219 10*3/uL (130-400); RED BLOOD COUNT 5.33 10*6/uL (4.10-5.10); RED CELL DISTRI WIDTH 13.5 % (0-14.5); WHITE BLOOD COUNT 11.3 10*3/uL (4.8-10.8)
[2020-05-13 09:11] LABS: ALBUMIN 3.4 gm/dl (3.1-4.5); ALKALINE PHOSPHATASE 87 U/L (45-117); BUN 11 mg/dl (7-24); CHLORIDE 108 mmol/L (98-107); CREATININE 0.83 mg/dL (0.55-1.02); POTASSIUM 3.9 mmol/L (3.5-5.1); SGOT/AST 19 IU/L (3-35); SGPT/ALT 40 U/L (12-78); SODIUM 137 mmol/L (136-145)
[2020-05-14 16:07] LABS: ATYPICAL PANCA <1:20 titer (Neg:<1:20)
[2020-05-15 12:07] LABS: SACCHAROMYCES CEREVISIAE IGA <20.0 Units (0.0-24.9)
== END | disposition home or self-care (01) ==
LOC: LAB 08:04 → US 08:30
PROVIDERS: Nurse Practitioner Family; ATTEND Internal Medicine Gastroenterology
DX: R19.7 Diarrhea, unspecified (principal); R11.2 Nausea with vomiting, unspecified; Z90.49 Acquired absence of other specified parts of digestive tract

== ENCOUNTER 2020-05-23 19:24 | Emergency (ER) | payer OTHER ==
[~2020-05-23] VITALS: Ht 160 cm; Wt 72.6 kg
[~2020-05-23 19:24] MED LIST changes: -AMITRIPTYLINE50 MG PO; -CORLANOR5 MG PO; -GABAPENTIN100 M2 PO; -HYDROXYZINE PAM50 MG PO; -MELATONIN10 M3 PO; -ONDANSETRON HYDR4 MG PO
[2020-05-23] MEDS ORDERED: CORLANOR5 MG PO (19:43)
[2020-05-23] MEDS ORDERED: PANTOPRAZOLE SO40 MG PO (19:43)
[2020-05-23] MEDS ORDERED: HYDROXYZINE PAM50 MG PO (19:44)
[2020-05-23] MEDS ORDERED: GABAPENTIN100 M2 PO (19:45)
[2020-05-23] MEDS ORDERED: AMITRIPTYLINE50 MG PO (19:45)
[2020-05-23] MEDS ORDERED: ONDANSETRON HYDR4 MG PO (19:45)
[2020-05-23] MEDS ORDERED: MELATONIN10 M3 PO (19:45)
== END 2020-05-23 23:27 | disposition left against medical advice (07) ==
LOC: ED 19:24
DX: K92.1 Melena (principal); Z53.21 Procedure and treatment not carried out due to patient leaving prior to being seen by health care provider

== ENCOUNTER → 2020-05-28 | Outpatient (CLI) | payer OTHER ==
[~2020-05-28] MED LIST changes: +AMITRIPTYLINE50 MG PO; +CORLANOR5 MG PO; +GABAPENTIN100 M2 PO; +HYDROXYZINE PAM50 MG PO; +MELATONIN10 M3 PO; +ONDANSETRON HYDR4 MG PO
[2020-05-28 16:17] LABS: HEMATOCRIT 43.7 % (37.0-47.0); MEAN CELL VOLUME 82.5 fl (81.0-99.0); MEAN CORPUSCULAR HGB 27.4 pg (27.0-31.0); MEAN CORPUSCULAR HGB CONC 33.2 g/dl (33.0-37.0); MEAN PLATELET VOLUME 10.1 fl (9.6-12.3); PLATELET COUNT AUTOMATED 217 10*3/uL (130-400); RED CELL DISTRI WIDTH 13.7 % (0-14.5); WHITE BLOOD COUNT 11.9 10*3/uL (4.8-10.8)
[2020-05-28 17:41] LABS: ATYPICAL LYMPHS 8 % (0-0); BASOPHILS 1 % (0-1); TOTAL CELLS COUNTED 100 #CELLS
[2020-05-28 17:42] LABS: PLATELET SUFFICIENCY NORMAL (NORMAL)
== END | disposition home or self-care (01) ==
LOC: RESCLI 02:16
PROVIDERS: Student in an Organized Health Care Education/Training Program; ATTEND Internal Medicine
DX: R73.9 Hyperglycemia, unspecified (principal); D72.828 Other elevated white blood cell count; J45.909 Unspecified asthma, uncomplicated; F41.1 Generalized anxiety disorder; K21.00 Gastro-esophageal reflux disease with esophagitis, without bleeding; F51.01 Primary insomnia; R00.0 Tachycardia, unspecified; K21.9 Gastro-esophageal reflux disease without esophagitis; Z78.9 Other specified health status; Z79.899 Other long term (current) drug therapy; Z88.8 Allergy status to other drugs, medicaments and biological substances; Z98.890 Other specified postprocedural states; Z90.49 Acquired absence of other specified parts of digestive tract

== ENCOUNTER 2020-06-10 14:32 | Emergency (ER) | payer OTHER ==
[~2020-06-10] VITALS: Wt 72.6 kg
[2020-06-10] MEDS ORDERED: MEDROL DOSEPAK4 MG PO (16:53)
== END 2020-06-10 17:06 | disposition home or self-care (01) ==
LOC: ED 14:32
DX: L50.9 Urticaria, unspecified (principal); F17.200 Nicotine dependence, unspecified, uncomplicated

== ENCOUNTER → 2020-06-30 | Outpatient (CLI) | payer OTHER | END | disposition home or self-care (01) | LOC: RESCLI 00:40 | PROVIDERS: ATTEND Internal Medicine | DX: Z78.9 Other specified health status (principal); J45.909 Unspecified asthma, uncomplicated; R00.0 Tachycardia, unspecified; F41.1 Generalized anxiety disorder; F51.01 Primary insomnia; K21.00 Gastro-esophageal reflux disease with esophagitis, without bleeding; R73.03 Prediabetes; D72.9 Disorder of white blood cells, unspecified; Z72.0 Tobacco use; Z71.6 Tobacco abuse counseling; Z79.899 Other long term (current) drug therapy; Z98.890 Other specified postprocedural states ==

== ENCOUNTER → 2020-09-30 | Outpatient (CLI) | payer OTHER ==
[2020-09-30 09:46] LABS: HEMATOCRIT 40.6 % (37.0-47.0); MEAN CELL VOLUME 85.3 fl (81.0-99.0); MEAN CORPUSCULAR HGB 27.9 pg (27.0-31.0); MEAN CORPUSCULAR HGB CONC 32.8 g/dl (33.0-37.0); MEAN PLATELET VOLUME 10.9 fl (9.6-12.3); PLATELET COUNT AUTOMATED 211 10*3/uL (130-400); RED BLOOD COUNT 4.76 10*6/uL (4.10-5.10); RED CELL DISTRI WIDTH 14.5 % (0-14.5); WHITE BLOOD COUNT 11.5 10*3/uL (4.8-10.8)
[2020-09-30 10:01] LABS: ALBUMIN 3.2 gm/dl (3.1-4.5); ALKALINE PHOSPHATASE 71 U/L (45-117); BUN 5 mg/dl (7-24); CHLORIDE 112 mmol/L (98-107); IRON 38 ug/dL (50-170); POTASSIUM 3.6 mmol/L (3.5-5.1); SGOT/AST 10 IU/L (3-35); SGPT/ALT 32 U/L (12-78); SODIUM 141 mmol/L (136-145); TOTAL IRON BINDING CAPACITY 302 ug/dl (250-450); TOTAL PROTEIN 6.7 gm/dL (6.4-8.2)
[2020-09-30 10:23] LABS: PLATELET SUFFICIENCY NORMAL (NORMAL); TOTAL CELLS COUNTED 100 #CELLS
[2020-09-30 10:25] LABS: VITAMIN D, 25-HYDROXY 27.2 ng/mL (30-100)
[2020-09-30 10:26] LABS: FERRITIN 37.1 ng/mL (10.0-291.0)
== END | disposition home or self-care (01) ==
LOC: RESCLI 06:41
PROVIDERS: Internal Medicine; ATTEND Emergency Medicine
DX: R53.83 Other fatigue (principal); Z78.9 Other specified health status; J45.909 Unspecified asthma, uncomplicated; R00.0 Tachycardia, unspecified; F41.1 Generalized anxiety disorder; F51.01 Primary insomnia; K21.00 Gastro-esophageal reflux disease with esophagitis, without bleeding; R73.03 Prediabetes; Z88.8 Allergy status to other drugs, medicaments and biological substances; F17.210 Nicotine dependence, cigarettes, uncomplicated; Z90.49 Acquired absence of other specified parts of digestive tract; Z79.84 Long term (current) use of oral hypoglycemic drugs; Z79.899 Other long term (current) drug therapy

== ENCOUNTER 2020-12-01 22:18 | Emergency (ER) | payer OTHER ==
[~2020-12-01] VITALS: Ht 160 cm; Wt 72.6 kg
[2020-12-01 22:40] LABS: HEMATOCRIT 40.4 % (37.0-47.0); MEAN CELL VOLUME 84.3 fl (81.0-99.0); MEAN CORPUSCULAR HGB 28.2 pg (27.0-31.0); MEAN CORPUSCULAR HGB CONC 33.4 g/dl (33.0-37.0); MEAN PLATELET VOLUME 10.4 fl (9.6-12.3); PLATELET COUNT AUTOMATED 201 10*3/uL (130-400); RED BLOOD COUNT 4.79 10*6/uL (4.10-5.10); RED CELL DISTRI WIDTH 13.9 % (0-14.5); WHITE BLOOD COUNT 12.7 10*3/uL (4.8-10.8)
[2020-12-01 22:56] LABS: ALKALINE PHOSPHATASE 73 U/L (45-117); BUN 8 mg/dl (7-24); CHLORIDE 108 mmol/L (98-107); CREATININE 0.74 mg/dL (0.55-1.02); LIPASE 78 U/L (73-393); POTASSIUM 3.7 mmol/L (3.5-5.1); SGOT/AST 107 IU/L (3-35); SGPT/ALT 62 U/L (12-78); SODIUM 140 mmol/L (136-145); TOTAL PROTEIN 6.5 gm/dL (6.4-8.2)
[2020-12-01 23:06] LABS: ATYPICAL LYMPHS 1 % (0-0); PLATELET SUFFICIENCY NORMAL (NORMAL); TOTAL CELLS COUNTED 100 #CELLS
[2020-12-02] MEDS ORDERED: PHENERGAN25 M3 PO (00:04)
== END 2020-12-02 00:18 | disposition home or self-care (01) ==
LOC: ED 22:18
PROVIDERS: Internal Medicine
DX: K52.9 Noninfective gastroenteritis and colitis, unspecified (principal); D72.829 Elevated white blood cell count, unspecified; Z91.041 Radiographic dye allergy status; Z88.0 Allergy status to penicillin; Z88.6 Allergy status to analgesic agent; Z79.899 Other long term (current) drug therapy; F17.210 Nicotine dependence, cigarettes, uncomplicated

== ENCOUNTER → 2020-12-23 | Outpatient (CLI) | payer OTHER | END | disposition home or self-care (01) | LOC: RESCLI 00:57 | PROVIDERS: ATTEND Internal Medicine Nephrology | DX: R11.2 Nausea with vomiting, unspecified (principal); Z30.42 Encounter for surveillance of injectable contraceptive; J45.909 Unspecified asthma, uncomplicated; F41.1 Generalized anxiety disorder; K21.00 Gastro-esophageal reflux disease with esophagitis, without bleeding; R73.03 Prediabetes; F51.01 Primary insomnia; R00.0 Tachycardia, unspecified; E55.9 Vitamin D deficiency, unspecified; E61.1 Iron deficiency; Z79.899 Other long term (current) drug therapy; Z98.890 Other specified postprocedural states ==

== ENCOUNTER 2021-01-30 01:42 | Emergency (ER) | payer OTHER ==
[~2021-01-30] VITALS: Ht 160 cm; Wt 72.6 kg
[2021-01-30 02:08] LABS: BASO % 0.5 % (0.0-1.0); EOS # 0.1 10*3/uL (0.0-0.4); EOS % 1.4 % (1.0-4.0); LYMPH # 2.7 10*3/uL (1.3-4.4); LYMPH % 31.9 % (27.0-41.0); MEAN CORPUSCULAR HGB 27.7 pg (27.0-31.0); MEAN CORPUSCULAR HGB CONC 32.6 g/dl (33.0-37.0); MEAN PLATELET VOLUME 10.3 fl (9.6-12.3); MONO # 0.5 10*3/uL (0.1-1.0); MONO % 6.1 % (3.0-9.0); NEUT # 5.1 10*3/uL (2.3-7.9); NEUT % 59.6 % (47.0-73.0); PLATELET COUNT AUTOMATED 199 10*3/uL (130-400); RED BLOOD COUNT 4.94 10*6/uL (4.10-5.10); RED CELL DISTRI WIDTH 13.8 % (0-14.5); WHITE BLOOD COUNT 8.6 10*3/uL (4.8-10.8)
[2021-01-30 02:27] LABS: ALBUMIN 3.1 gm/dl (3.1-4.5); ALKALINE PHOSPHATASE 84 U/L (45-117); BUN 7 mg/dl (7-24); CHLORIDE 106 mmol/L (98-107); CREATININE 0.93 mg/dL (0.55-1.02); POTASSIUM 3.4 mmol/L (3.5-5.1); SGOT/AST 30 IU/L (3-35); SGPT/ALT 43 U/L (12-78); SODIUM 136 mmol/L (136-145); TOTAL PROTEIN 6.9 gm/dL (6.4-8.2)
== END 2021-01-30 02:48 | disposition home or self-care (01) ==
LOC: ED 01:42
PROVIDERS: Internal Medicine
DX: U07.1 COVID-19 (principal); Z20.822 Contact with and (suspected) exposure to COVID-19; I10 Essential (primary) hypertension; R73.9 Hyperglycemia, unspecified; E87.6 Hypokalemia; F17.210 Nicotine dependence, cigarettes, uncomplicated; Z88.0 Allergy status to penicillin; Z88.6 Allergy status to analgesic agent; Z91.041 Radiographic dye allergy status; Z79.899 Other long term (current) drug therapy

== ENCOUNTER → 2021-03-24 | Outpatient (CLI) | payer OTHER ==
[2021-03-24 12:35] LABS: THYROXINE (T4) TOTAL 10.5 ug/dl (4.8-13.9)
[2021-03-24 12:39] LABS: THYROID STIM HORMONE (HS) 1.19 uIU/ml (0.358-4.75)
[2021-03-25 05:06] LABS: TOTAL PROTEIN, SERUM 6.2 g/dL (6.0-8.5)
[2021-03-25 08:08] LABS: IMMUNOGLOBULIN G, QNT 654 mg/dL (586-1602); IMMUNOGLOBULIN M, QNT 200 mg/dL (26-217); RHEUMATOID ARTHRITIS FACTOR <10.0 IU/mL (<14.0)
[2021-03-25 13:07] LABS: ANTI-RNP ANTIBODIES <0.2 AI (0.0-0.9); SJOGREN ANTI-SS-A <0.2 AI (0.0-0.9); SJOREN AB, ANTI-SS-B <0.2 AI (0.0-0.9)
[2021-03-25 15:07] LABS: t-TRANSGLUTAMINASE (tTG) IGA <2 U/mL (0-3); t-TRANSGLUTAMINASE (tTG) IgG <2 U/mL (0-5)
[2021-03-25 16:08] LABS: ALBUMIN 3.1 g/dL (2.9-4.4); ALPHA-1-GLOBULIN 0.3 g/dL (0.0-0.4); ALPHA-2-GLOBULIN 0.9 g/dL (0.4-1.0); BETA GLOBULIN 1.1 g/dL (0.7-1.3); GAMMA GLOBULIN 0.8 g/dL (0.4-1.8); GLOBULIN, TOTAL 3.1 g/dL (2.2-3.9); M-SPIKE Not Observed g/dL (Not Observed)
[2021-03-26 00:06] LABS: CCP ANTIBODIES IGG/IGA 11 units (0-19)
[2021-03-26 16:08] LABS: ENDOMYSIAL ANTIBODY IgA Negative (Negative)
== END | disposition home or self-care (01) ==
LOC: RESCLI 00:58 → LAB 00:58 → RESCLI 07:05
PROVIDERS: ATTEND Physician Assistant Medical
DX: M77.31 Calcaneal spur, right foot (principal); G62.9 Polyneuropathy, unspecified; M20.11 Hallux valgus (acquired), right foot; M19.071 Primary osteoarthritis, right ankle and foot; R70.0 Elevated erythrocyte sedimentation rate; R79.82 Elevated C-reactive protein (CRP); K58.9 Irritable bowel syndrome, unspecified; E55.9 Vitamin D deficiency, unspecified

== ENCOUNTER → 2021-03-29 | Outpatient (CLI) | payer OTHER | END | disposition home or self-care (01) | LOC: MRI 13:00 | PROVIDERS: ATTEND Physician Assistant Medical | DX: M47.816 Spondylosis without myelopathy or radiculopathy, lumbar region (principal); M48.061 Spinal stenosis, lumbar region without neurogenic claudication; M51.26 Other intervertebral disc displacement, lumbar region ==

== ENCOUNTER → 2021-05-04 | Outpatient (CLI) | payer OTHER | END | disposition home or self-care (01) | LOC: RESCLI 00:35 | PROVIDERS: ATTEND Emergency Medicine | DX: J45.909 Unspecified asthma, uncomplicated (principal); D72.828 Other elevated white blood cell count; F41.1 Generalized anxiety disorder; F51.01 Primary insomnia; D72.9 Disorder of white blood cells, unspecified; E55.9 Vitamin D deficiency, unspecified; K21.00 Gastro-esophageal reflux disease with esophagitis, without bleeding; R73.03 Prediabetes; R00.0 Tachycardia, unspecified; E61.1 Iron deficiency; R20.2 Paresthesia of skin; Z79.899 Other long term (current) drug therapy; Z87.891 Personal history of nicotine dependence; Z90.49 Acquired absence of other specified parts of digestive tract; Z88.8 Allergy status to other drugs, medicaments and biological substances ==

== ENCOUNTER → 2021-05-05 | Outpatient (CLI) | payer OTHER | END | disposition home or self-care (01) | LOC: LAB 11:14 | PROVIDERS: ATTEND Internal Medicine | DX: R73.03 Prediabetes (principal) ==

== ENCOUNTER → 2021-05-11 | Outpatient (CLI) | payer OTHER | END | disposition home or self-care (01) | LOC: LAB 09:50 | PROVIDERS: ATTEND Hospitalist | DX: E11.9 Type 2 diabetes mellitus without complications (principal) ==

== ENCOUNTER → 2021-05-26 | Outpatient (CLI) | payer OTHER ==
[2021-05-26 08:36] LABS: BASO % 0.3 % (0.0-1.0); EOS # 0.1 10*3/uL (0.0-0.4); HEMATOCRIT 44.9 % (37.0-47.0); LYMPH # 3.9 10*3/uL (1.3-4.4); LYMPH % 37.2 % (27.0-41.0); MEAN CELL VOLUME 82.4 fl (81.0-99.0); MEAN CORPUSCULAR HGB 27.7 pg (27.0-31.0); MEAN CORPUSCULAR HGB CONC 33.6 g/dl (33.0-37.0); MEAN PLATELET VOLUME 10.5 fl (9.6-12.3); MONO # 0.4 10*3/uL (0.1-1.0); NEUT % 57.3 % (47.0-73.0); PLATELET COUNT AUTOMATED 221 10*3/uL (130-400); RED BLOOD COUNT 5.45 10*6/uL (4.10-5.10); RED CELL DISTRI WIDTH 13.8 % (0-14.5); WHITE BLOOD COUNT 10.4 10*3/uL (4.8-10.8)
[2021-05-26 08:52] LABS: ALKALINE PHOSPHATASE 94 U/L (45-117); BUN 9 mg/dl (7-24); CHLORIDE 110 mmol/L (98-107); CREATININE 0.86 mg/dL (0.55-1.02); POTASSIUM 3.7 mmol/L (3.5-5.1); SGOT/AST 29 IU/L (3-35); SGPT/ALT 47 U/L (12-78); SODIUM 138 mmol/L (136-145); TOTAL PROTEIN 7.6 gm/dL (6.4-8.2)
[2021-05-26 09:31] LABS: VITAMIN D, 25-HYDROXY 21.9 ng/mL (30-100)
[2021-05-27 05:06] LABS: RHEUMATOID FACTOR <10.0 IU/mL (<14.0)
[2021-06-03 13:07] LABS: METHYLMALONIC ACID 115 nmol/L (0-378)
== END | disposition home or self-care (01) ==
LOC: LAB 08:09
PROVIDERS: ATTEND Physician Assistant Medical
DX: R79.82 Elevated C-reactive protein (CRP) (principal); R20.2 Paresthesia of skin; R00.2 Palpitations; R20.0 Anesthesia of skin

== ENCOUNTER → 2021-09-21 | Outpatient (CLI) | payer OTHER | END | disposition home or self-care (01) | LOC: RAD 11:57 | PROVIDERS: ATTEND Student in an Organized Health Care Education/Training Program | DX: M51.36 Other intervertebral disc degeneration, lumbar region (principal) ==

== ENCOUNTER → 2021-09-29 | Outpatient (CLI) | payer OTHER ==
[2021-09-29 10:37] LABS: BASO # 0.1 10*3/uL (0.0-0.1); BASO % 0.4 % (0.0-1.0); EOS # 0.1 10*3/uL (0.0-0.4); HEMATOCRIT 43.6 % (37.0-47.0); LYMPH # 4.2 10*3/uL (1.3-4.4); LYMPH % 34.6 % (27.0-41.0); MEAN CORPUSCULAR HGB 29.2 pg (27.0-31.0); MEAN CORPUSCULAR HGB CONC 34.4 g/dl (33.0-37.0); MEAN PLATELET VOLUME 10.7 fl (9.6-12.3); MONO # 0.6 10*3/uL (0.1-1.0); MONO % 4.6 % (3.0-9.0); NEUT # 7.3 10*3/uL (2.3-7.9); NEUT % 59.1 % (47.0-73.0); PLATELET COUNT AUTOMATED 213 10*3/uL (130-400); RED BLOOD COUNT 5.13 10*6/uL (4.10-5.10); RED CELL DISTRI WIDTH 13.2 % (0-14.5); WHITE BLOOD COUNT 12.3 10*3/uL (4.8-10.8)
== END | disposition home or self-care (01) ==
LOC: RESCLI 01:05
PROVIDERS: Internal Medicine; ATTEND Emergency Medicine
DX: C91.10 Chronic lymphocytic leukemia of B-cell type not having achieved remission (principal); E11.9 Type 2 diabetes mellitus without complications; K58.9 Irritable bowel syndrome, unspecified; R00.0 Tachycardia, unspecified; K21.00 Gastro-esophageal reflux disease with esophagitis, without bleeding; Z78.9 Other specified health status; F41.1 Generalized anxiety disorder; F51.01 Primary insomnia; E61.1 Iron deficiency; F17.200 Nicotine dependence, unspecified, uncomplicated; J45.909 Unspecified asthma, uncomplicated; Z88.8 Allergy status to other drugs, medicaments and biological substances; Z88.0 Allergy status to penicillin; Z79.899 Other long term (current) drug therapy; Z79.01 Long term (current) use of anticoagulants

== ENCOUNTER 2021-10-18 08:02 | Emergency (ER) | payer OTHER ==
[~2021-10-18] VITALS: Ht 157.4 cm; Wt 77.1 kg
== END 2021-10-18 14:51 | disposition home or self-care (01) ==
LOC: ED 08:02
DX: B34.9 Viral infection, unspecified (principal); Z20.822 Contact with and (suspected) exposure to COVID-19; Z91.041 Radiographic dye allergy status; Z88.0 Allergy status to penicillin; Z91.018 Allergy to other foods; Z88.6 Allergy status to analgesic agent; Z79.899 Other long term (current) drug therapy; Z79.2 Long term (current) use of antibiotics; Z90.49 Acquired absence of other specified parts of digestive tract

== ENCOUNTER → 2021-12-21 | Outpatient (CLI) | payer OTHER ==
[~2021-12-21] MED LIST changes: +DOXEPIN50 MG PO; +IRON325 M3 PO; +NATURE'S BLEND F1 MG PO; +VICTOZA 2-0.6 MG/0.1 SQ; +VIT D PO
== END | disposition home or self-care (01) ==
LOC: CARD 01:21
PROVIDERS: ATTEND Internal Medicine Cardiovascular Disease
DX: R00.2 Palpitations (principal); R07.2 Precordial pain

== ENCOUNTER → 2021-12-22 | Outpatient (CLI) | payer OTHER | END | disposition home or self-care (01) | LOC: RESCLI 13:22 | PROVIDERS: ATTEND Family Medicine | DX: B34.9 Viral infection, unspecified (principal); J45.909 Unspecified asthma, uncomplicated; F41.9 Anxiety disorder, unspecified; F32.A Depression, unspecified; F17.200 Nicotine dependence, unspecified, uncomplicated; Z88.0 Allergy status to penicillin; Z90.49 Acquired absence of other specified parts of digestive tract; Z88.8 Allergy status to other drugs, medicaments and biological substances; Z98.890 Other specified postprocedural states; Z79.899 Other long term (current) drug therapy ==

== ENCOUNTER → 2021-12-29 | Outpatient (CLI) | payer OTHER ==
[2021-12-29 09:02] LABS: BASO # 0.1 10*3/uL (0.0-0.1); BASO % 0.5 % (0.0-1.0); EOS # 0.1 10*3/uL (0.0-0.4); EOS % 0.8 % (1.0-4.0); HEMATOCRIT 45.7 % (37.0-47.0); LYMPH # 4.6 10*3/uL (1.3-4.4); LYMPH % 36.8 % (27.0-41.0); MEAN CELL VOLUME 84.2 fl (81.0-99.0); MEAN CORPUSCULAR HGB 28.4 pg (27.0-31.0); MEAN CORPUSCULAR HGB CONC 33.7 g/dl (33.0-37.0); MEAN PLATELET VOLUME 10.5 fl (9.6-12.3); MONO # 0.5 10*3/uL (0.1-1.0); MONO % 4.3 % (3.0-9.0); NEUT # 7.1 10*3/uL (2.3-7.9); NEUT % 57.4 % (47.0-73.0); PLATELET COUNT AUTOMATED 199 10*3/uL (130-400); RED BLOOD COUNT 5.43 10*6/uL (4.10-5.10); RED CELL DISTRI WIDTH 13.2 % (0-14.5); WHITE BLOOD COUNT 12.4 10*3/uL (4.8-10.8)
[2021-12-29 09:22] LABS: ALKALINE PHOSPHATASE 77 U/L (45-117); BUN 8 mg/dl (7-24); CHLORIDE 107 mmol/L (98-107); CHOLESTEROL 139 mg/dL (<200); CREATININE 0.81 mg/dL (0.55-1.02); LDL CHOLESTEROL 78 mg/dL (9-159); POTASSIUM 3.5 mmol/L (3.5-5.1); SGOT/AST 21 IU/L (3-35); SGPT/ALT 42 U/L (12-78); SODIUM 138 mmol/L (136-145); TOTAL PROTEIN 7.4 gm/dL (6.4-8.2); TRIGLYCERIDES 187 mg/dl (<150)
== END | disposition home or self-care (01) ==
LOC: RESCLI 00:22
PROVIDERS: Internal Medicine; ATTEND Internal Medicine
DX: C91.10 Chronic lymphocytic leukemia of B-cell type not having achieved remission (principal); K58.9 Irritable bowel syndrome, unspecified; E11.9 Type 2 diabetes mellitus without complications; K21.00 Gastro-esophageal reflux disease with esophagitis, without bleeding; E55.9 Vitamin D deficiency, unspecified; J45.909 Unspecified asthma, uncomplicated; E53.8 Deficiency of other specified B group vitamins; E61.1 Iron deficiency; F51.01 Primary insomnia; F17.200 Nicotine dependence, unspecified, uncomplicated; F41.9 Anxiety disorder, unspecified; R00.0 Tachycardia, unspecified; Z78.9 Other specified health status; Z88.0 Allergy status to penicillin; Z88.8 Allergy status to other drugs, medicaments and biological substances; Z79.899 Other long term (current) drug therapy

== ENCOUNTER → 2022-01-05 | Outpatient (CLI) | payer OTHER | END | disposition home or self-care (01) | LOC: LAB 12:07 | PROVIDERS: ATTEND Internal Medicine | DX: J40 Bronchitis, not specified as acute or chronic (principal); Z20.822 Contact with and (suspected) exposure to COVID-19 ==

== ENCOUNTER → 2022-02-02 | Outpatient (CLI) | payer OTHER | END | disposition home or self-care (01) | LOC: LAB 16:15 | PROVIDERS: ATTEND Internal Medicine | DX: E61.1 Iron deficiency (principal) ==

== ENCOUNTER → 2022-02-09 | Outpatient (CLI) | payer OTHER | END | disposition home or self-care (01) | LOC: RESCLI 09:59 | PROVIDERS: ATTEND Student in an Organized Health Care Education/Training Program | DX: J06.9 Acute upper respiratory infection, unspecified (principal); R00.0 Tachycardia, unspecified; E11.9 Type 2 diabetes mellitus without complications; E61.1 Iron deficiency; J45.909 Unspecified asthma, uncomplicated; E53.8 Deficiency of other specified B group vitamins; K21.00 Gastro-esophageal reflux disease with esophagitis, without bleeding; F41.1 Generalized anxiety disorder; K58.9 Irritable bowel syndrome, unspecified; F51.01 Primary insomnia; B37.0 Candidal stomatitis; Z78.9 Other specified health status; Z88.0 Allergy status to penicillin; Z88.8 Allergy status to other drugs, medicaments and biological substances; Z90.49 Acquired absence of other specified parts of digestive tract; Z98.890 Other specified postprocedural states; Z79.899 Other long term (current) drug therapy ==

== ENCOUNTER → 2022-02-09 | Outpatient (CLI) | payer OTHER | END | disposition home or self-care (01) | LOC: LAB 11:27 | PROVIDERS: ATTEND Internal Medicine | DX: J06.9 Acute upper respiratory infection, unspecified (principal); Z20.822 Contact with and (suspected) exposure to COVID-19 ==

== ENCOUNTER 2022-04-01 17:33 | Emergency (ER) | payer OTHER | END 2022-04-01 19:19 | disposition left against medical advice (07) | LOC: ED 17:33 | DX: R07.89 Other chest pain (principal); J02.9 Acute pharyngitis, unspecified; Z53.21 Procedure and treatment not carried out due to patient leaving prior to being seen by health care provider ==

== ENCOUNTER → 2022-04-13 | Outpatient (CLI) | payer OTHER ==
[2022-04-13 10:36] LABS: BASO # 0.1 10*3/uL (0.0-0.1); BASO % 0.5 % (0.0-1.0); EOS # 0.2 10*3/uL (0.0-0.4); EOS % 1.2 % (1.0-4.0); HEMATOCRIT 44.9 % (37.0-47.0); LYMPH # 4.7 10*3/uL (1.3-4.4); LYMPH % 38.7 % (27.0-41.0); MEAN CELL VOLUME 86.3 fl (81.0-99.0); MEAN CORPUSCULAR HGB 29.6 pg (27.0-31.0); MEAN CORPUSCULAR HGB CONC 34.3 g/dl (33.0-37.0); MEAN PLATELET VOLUME 10.6 fl (9.6-12.3); MONO # 0.5 10*3/uL (0.1-1.0); MONO % 4.2 % (3.0-9.0); NEUT # 6.7 10*3/uL (2.3-7.9); NEUT % 55.1 % (47.0-73.0); PLATELET COUNT AUTOMATED 195 10*3/uL (130-400); RED CELL DISTRI WIDTH 13.2 % (0-14.5); WHITE BLOOD COUNT 12.1 10*3/uL (4.8-10.8)
[2022-04-13 10:59] LABS: ALKALINE PHOSPHATASE 72 U/L (46-116); BUN 6 mg/dl (9-23); CHLORIDE 104 mmol/L (98-107); POTASSIUM 3.8 mmol/L (3.4-5.1); SGPT/ALT 26 U/L (10-49); TOTAL PROTEIN 7.4 gm/dL (6.0-8.0)
== END | disposition home or self-care (01) ==
LOC: RESCLI 09:32
PROVIDERS: ATTEND Student in an Organized Health Care Education/Training Program
DX: J02.9 Acute pharyngitis, unspecified (principal); J45.909 Unspecified asthma, uncomplicated; F32.9 Major depressive disorder, single episode, unspecified; K21.9 Gastro-esophageal reflux disease without esophagitis; E11.9 Type 2 diabetes mellitus without complications; Z20.822 Contact with and (suspected) exposure to COVID-19; Z98.890 Other specified postprocedural states; Z88.0 Allergy status to penicillin; Z88.8 Allergy status to other drugs, medicaments and biological substances; Z82.49 Family history of ischemic heart disease and other diseases of the circulatory system; Z79.899 Other long term (current) drug therapy

== ENCOUNTER → 2022-04-20 | Outpatient (CLI) | payer OTHER | END | disposition home or self-care (01) | LOC: RESCLI 00:41 | PROVIDERS: ATTEND Internal Medicine | DX: J02.9 Acute pharyngitis, unspecified (principal); J45.909 Unspecified asthma, uncomplicated; E11.9 Type 2 diabetes mellitus without complications; F41.1 Generalized anxiety disorder; Z88.0 Allergy status to penicillin; Z88.8 Allergy status to other drugs, medicaments and biological substances; Z79.899 Other long term (current) drug therapy ==

== ENCOUNTER → 2022-05-05 | Outpatient (CLI) | payer OTHER | END | disposition home or self-care (01) | LOC: LAB 02:07 → MAMMO 02:07 | PROVIDERS: ATTEND Nurse Practitioner Women's Health | DX: N60.01 Solitary cyst of right breast (principal); N64.52 Nipple discharge; R53.83 Other fatigue; Z80.3 Family history of malignant neoplasm of breast ==

== ENCOUNTER → 2022-06-21 | Outpatient (CLI) | payer OTHER | END | disposition home or self-care (01) | LOC: RESCLI 11:00 | PROVIDERS: ATTEND Family Medicine | DX: J06.9 Acute upper respiratory infection, unspecified (principal); J45.909 Unspecified asthma, uncomplicated; Z20.822 Contact with and (suspected) exposure to COVID-19; E66.9 Obesity, unspecified; Z91.09 Other allergy status, other than to drugs and biological substances; G43.019 Migraine without aura, intractable, without status migrainosus; H90.3 Sensorineural hearing loss, bilateral; F41.1 Generalized anxiety disorder; F51.01 Primary insomnia; D72.9 Disorder of white blood cells, unspecified; E55.9 Vitamin D deficiency, unspecified; K21.00 Gastro-esophageal reflux disease with esophagitis, without bleeding; E11.9 Type 2 diabetes mellitus without complications; C91.10 Chronic lymphocytic leukemia of B-cell type not having achieved remission; K58.9 Irritable bowel syndrome, unspecified; R00.0 Tachycardia, unspecified; Z78.9 Other specified health status; Z79.899 Other long term (current) drug therapy; Z98.890 Other specified postprocedural states ==

== ENCOUNTER → 2022-07-26 | Outpatient (CLI) | payer OTHER ==
[2022-07-26 11:02] LABS: BASO # 0.1 10*3/uL (0.0-0.1); BASO % 0.5 % (0.0-1.0); EOS # 0.2 10*3/uL (0.0-0.4); EOS % 1.5 % (1.0-4.0); HEMATOCRIT 42.3 % (37.0-47.0); LYMPH # 4.2 10*3/uL (1.3-4.4); LYMPH % 38.9 % (27.0-41.0); MEAN CELL VOLUME 86.9 fl (81.0-99.0); MEAN CORPUSCULAR HGB 30.4 pg (27.0-31.0); MEAN PLATELET VOLUME 10.7 fl (9.6-12.3); MONO # 0.4 10*3/uL (0.1-1.0); NEUT # 5.9 10*3/uL (2.3-7.9); NEUT % 54.8 % (47.0-73.0); PLATELET COUNT AUTOMATED 180 10*3/uL (130-400); RED BLOOD COUNT 4.87 10*6/uL (4.10-5.10); RED CELL DISTRI WIDTH 12.9 % (0-14.5); WHITE BLOOD COUNT 10.7 10*3/uL (4.8-10.8)
[2022-07-26 11:36] LABS: ALKALINE PHOSPHATASE 64 U/L (46-116); BUN 5 mg/dl (9-23); CHLORIDE 108 mmol/L (98-107); POTASSIUM 3.4 mmol/L (3.4-5.1); SGPT/ALT 15 U/L (10-49); TOTAL PROTEIN 6.8 gm/dL (6.0-8.0)
[2022-07-26 11:38] LABS: VITAMIN D, 25-HYDROXY 45.4 ng/mL (30-100)
== END | disposition home or self-care (01) ==
LOC: RESCLI 09:24
PROVIDERS: Student in an Organized Health Care Education/Training Program; ATTEND Internal Medicine
DX: H90.3 Sensorineural hearing loss, bilateral (principal); J45.909 Unspecified asthma, uncomplicated; Z91.09 Other allergy status, other than to drugs and biological substances; E66.9 Obesity, unspecified; G43.019 Migraine without aura, intractable, without status migrainosus; F41.1 Generalized anxiety disorder; F51.01 Primary insomnia; D72.9 Disorder of white blood cells, unspecified; K21.00 Gastro-esophageal reflux disease with esophagitis, without bleeding; E55.9 Vitamin D deficiency, unspecified; E11.9 Type 2 diabetes mellitus without complications; C91.10 Chronic lymphocytic leukemia of B-cell type not having achieved remission; K58.9 Irritable bowel syndrome, unspecified; J06.9 Acute upper respiratory infection, unspecified; J34.89 Other specified disorders of nose and nasal sinuses; Z88.0 Allergy status to penicillin; Z88.8 Allergy status to other drugs, medicaments and biological substances; Z98.890 Other specified postprocedural states; Z82.49 Family history of ischemic heart disease and other diseases of the circulatory system; Z79.899 Other long term (current) drug therapy

== ENCOUNTER 2022-08-28 08:01 | Emergency (ER) | payer OTHER ==
[~2022-08-28] VITALS: Ht 157.4 cm; Wt 72.6 kg
[2022-08-28 08:35] LABS: BASO # 0.1 10*3/uL (0.0-0.1); BASO % 0.5 % (0.0-1.0); EOS # 0.2 10*3/uL (0.0-0.4); EOS % 1.5 % (1.0-4.0); HEMATOCRIT 41.5 % (37.0-47.0); LYMPH # 3.5 10*3/uL (1.3-4.4); LYMPH % 33.7 % (27.0-41.0); MEAN CELL VOLUME 85.4 fl (81.0-99.0); MEAN CORPUSCULAR HGB 29.8 pg (27.0-31.0); MEAN CORPUSCULAR HGB CONC 34.9 g/dl (33.0-37.0); MEAN PLATELET VOLUME 10.2 fl (9.6-12.3); MONO # 0.5 10*3/uL (0.1-1.0); MONO % 4.7 % (3.0-9.0); NEUT # 6.2 10*3/uL (2.3-7.9); NEUT % 59.3 % (47.0-73.0); PLATELET COUNT AUTOMATED 173 10*3/uL (130-400); RED BLOOD COUNT 4.86 10*6/uL (4.10-5.10); RED CELL DISTRI WIDTH 13.1 % (0-14.5); WHITE BLOOD COUNT 10.4 10*3/uL (4.8-10.8)
[2022-08-28 08:46] LABS: ACT PARTIAL THROMBO TIME 27.3 SECONDS (20.0-32.1)
[2022-08-28 09:00] LABS: ALKALINE PHOSPHATASE 64 U/L (46-116); BUN 8 mg/dl (9-23); CHLORIDE 109 mmol/L (98-107); LIPASE 59 U/L (12-53); POTASSIUM 3.5 mmol/L (3.4-5.1); SGPT/ALT 16 U/L (10-49); TOTAL PROTEIN 6.7 gm/dL (6.0-8.0)
== END 2022-08-28 09:51 | disposition home or self-care (01) ==
LOC: ED 08:01
PROVIDERS: Internal Medicine
DX: B34.9 Viral infection, unspecified (principal); F41.9 Anxiety disorder, unspecified; I10 Essential (primary) hypertension; Z91.041 Radiographic dye allergy status; Z88.0 Allergy status to penicillin; Z91.018 Allergy to other foods; Z88.8 Allergy status to other drugs, medicaments and biological substances; Z20.822 Contact with and (suspected) exposure to COVID-19; Z90.49 Acquired absence of other specified parts of digestive tract; F17.210 Nicotine dependence, cigarettes, uncomplicated

== ENCOUNTER → 2023-02-14 | Outpatient (CLI) | payer OTHER ==
[2023-02-14 12:27] LABS: BASO % 0.3 % (0.0-1.0); EOS # 0.2 10*3/uL (0.0-0.4); EOS % 1.6 % (1.0-4.0); HEMATOCRIT 43.8 % (37.0-47.0); LYMPH # 4.2 10*3/uL (1.3-4.4); LYMPH % 31.7 % (27.0-41.0); MEAN CELL VOLUME 87.1 fl (81.0-99.0); MEAN CORPUSCULAR HGB CONC 33.3 g/dl (33.0-37.0); MEAN PLATELET VOLUME 10.1 fl (9.6-12.3); MONO # 0.5 10*3/uL (0.1-1.0); MONO % 3.8 % (3.0-9.0); NEUT # 8.2 10*3/uL (2.3-7.9); NEUT % 62.2 % (47.0-73.0); PLATELET COUNT AUTOMATED 187 10*3/uL (130-400); RED BLOOD COUNT 5.03 10*6/uL (4.10-5.10); RED CELL DISTRI WIDTH 13.2 % (0-14.5); WHITE BLOOD COUNT 13.2 10*3/uL (4.8-10.8)
[2023-02-14 12:52] LABS: ALKALINE PHOSPHATASE 62 U/L (46-116); BUN 5 mg/dl (9-23); CHLORIDE 108 mmol/L (98-107); CHOLESTEROL 159 mg/dL (<200); LDL CHOLESTEROL 74 mg/dL (9-159); POTASSIUM 3.6 mmol/L (3.4-5.1); SGPT/ALT 16 U/L (5-49); TOTAL PROTEIN 7.1 gm/dL (6.0-8.0); TRIGLYCERIDES 250 mg/dl (<150); VITAMIN D, 25-HYDROXY 48.2 ng/mL (30-100)
== END | disposition home or self-care (01) ==
LOC: LAB 11:22
PROVIDERS: Student in an Organized Health Care Education/Training Program; ATTEND Internal Medicine
DX: J45.909 Unspecified asthma, uncomplicated (principal)

== ENCOUNTER → 2023-03-08 | Outpatient (CLI) | payer OTHER | END | disposition home or self-care (01) | LOC: US 02-22 12:30 | PROVIDERS: ATTEND Nurse Practitioner Women's Health | DX: N60.01 Solitary cyst of right breast (principal) ==

== ENCOUNTER → 2023-04-17 | Outpatient (CLI) | payer OTHER | END | disposition home or self-care (01) | LOC: RESCLI 03:02 | PROVIDERS: ATTEND Internal Medicine | DX: G43.019 Migraine without aura, intractable, without status migrainosus (principal); E11.9 Type 2 diabetes mellitus without complications; K58.9 Irritable bowel syndrome, unspecified; F41.1 Generalized anxiety disorder; E55.9 Vitamin D deficiency, unspecified; K21.00 Gastro-esophageal reflux disease with esophagitis, without bleeding; J45.909 Unspecified asthma, uncomplicated; Z79.899 Other long term (current) drug therapy; Z88.0 Allergy status to penicillin; Z88.8 Allergy status to other drugs, medicaments and biological substances ==

== ENCOUNTER → 2023-04-24 | Outpatient (CLI) | payer OTHER ==
[2023-04-24 10:37] LABS: BASO # 0.1 10*3/uL (0.0-0.1); BASO % 0.5 % (0.0-1.0); EOS # 0.2 10*3/uL (0.0-0.4); EOS % 1.7 % (1.0-4.0); LYMPH # 3.7 10*3/uL (1.3-4.4); LYMPH % 38.3 % (27.0-41.0); MEAN CELL VOLUME 87.3 fl (81.0-99.0); MEAN CORPUSCULAR HGB 29.1 pg (27.0-31.0); MEAN CORPUSCULAR HGB CONC 33.3 g/dl (33.0-37.0); MEAN PLATELET VOLUME 9.8 fl (9.6-12.3); MONO # 0.3 10*3/uL (0.1-1.0); MONO % 3.3 % (3.0-9.0); NEUT # 5.3 10*3/uL (2.3-7.9); NEUT % 55.9 % (47.0-73.0); PLATELET COUNT AUTOMATED 197 10*3/uL (130-400); RED BLOOD COUNT 4.81 10*6/uL (4.10-5.10); RED CELL DISTRI WIDTH 13.2 % (0-14.5); WHITE BLOOD COUNT 9.6 10*3/uL (4.8-10.8)
== END | disposition home or self-care (01) ==
LOC: LAB 10:15
PROVIDERS: ATTEND Student in an Organized Health Care Education/Training Program
DX: Z01.812 Encounter for preprocedural laboratory examination (principal); B34.9 Viral infection, unspecified

== ENCOUNTER → 2023-06-22 | Outpatient (CLI) | payer OTHER | END | disposition home or self-care (01) | LOC: LAB 10:02 | PROVIDERS: ATTEND Internal Medicine Clinical Cardiac Electrophysiology | DX: R00.2 Palpitations (principal) ==

== ENCOUNTER → 2023-09-05 | Outpatient (CLI) | payer OTHER | LOC: LAB 12:09 | PROVIDERS: ATTEND Internal Medicine Clinical Cardiac Electrophysiology | DX: R00.2 Palpitations (principal) ==

== ENCOUNTER 2023-10-30 14:27 | Emergency (ER) | payer OTHER ==
[~2023-10-30] VITALS: Ht 160 cm; Wt 72.6 kg
== END 2023-10-30 15:11 | disposition home or self-care (01) ==
LOC: ED 14:27
DX: S06.0X0A Concussion without loss of consciousness, initial encounter (principal); F41.9 Anxiety disorder, unspecified; I10 Essential (primary) hypertension; R42 Dizziness and giddiness; R11.0 Nausea; H53.8 Other visual disturbances; F17.210 Nicotine dependence, cigarettes, uncomplicated; Z91.041 Radiographic dye allergy status; Z88.0 Allergy status to penicillin; Z91.018 Allergy to other foods; Z88.8 Allergy status to other drugs, medicaments and biological substances; Z90.49 Acquired absence of other specified parts of digestive tract; W17.89XA Other fall from one level to another, initial encounter; Y93.89 Activity, other specified; Y92.009 Unspecified place in unspecified non-institutional (private) residence as the place of occurrence of the external cause; Y99.8 Other external cause status

== ENCOUNTER → 2023-10-30 | Outpatient (CLI) | payer OTHER | END | disposition home or self-care (01) | LOC: RESCLI 13:34 | PROVIDERS: ATTEND Internal Medicine | DX: S09.90XA Unspecified injury of head, initial encounter (principal); F41.1 Generalized anxiety disorder; K21.9 Gastro-esophageal reflux disease without esophagitis; F32.A Depression, unspecified; E11.9 Type 2 diabetes mellitus without complications; J45.909 Unspecified asthma, uncomplicated; Z90.49 Acquired absence of other specified parts of digestive tract; Z98.890 Other specified postprocedural states; Z82.49 Family history of ischemic heart disease and other diseases of the circulatory system; Z87.891 Personal history of nicotine dependence; Z88.0 Allergy status to penicillin; Z88.8 Allergy status to other drugs, medicaments and biological substances; Z79.899 Other long term (current) drug therapy; X58.XXXA Exposure to other specified factors, initial encounter; Y93.89 Activity, other specified; Y92.89 Other specified places as the place of occurrence of the external cause; Y99.8 Other external cause status ==

== ENCOUNTER → 2024-04-08 | Outpatient (CLI) | payer OTHER | END | disposition home or self-care (01) | LOC: LAB 09:25 | PROVIDERS: ATTEND Internal Medicine | DX: E11.9 Type 2 diabetes mellitus without complications (principal) ==

== ENCOUNTER → 2024-04-22 | Outpatient (CLI) | payer OTHER ==
[2024-04-22 11:37] LABS: BASO # 0.1 10*3/uL (0.0-0.1); BASO % 0.5 % (0.0-1.0); EOS # 0.2 10*3/uL (0.0-0.4); EOS % 1.6 % (1.0-4.0); HEMATOCRIT 44.6 % (37.0-47.0); MEAN CELL VOLUME 88.3 fl (81.0-99.0); MEAN CORPUSCULAR HGB 30.3 pg (27.0-31.0); MEAN CORPUSCULAR HGB CONC 34.3 g/dl (33.0-37.0); MEAN PLATELET VOLUME 10.1 fl (9.6-12.3); MONO # 0.5 10*3/uL (0.1-1.0); MONO % 3.6 % (3.0-9.0); NEUT # 8.5 10*3/uL (2.3-7.9); NEUT % 60.4 % (47.0-73.0); PLATELET COUNT AUTOMATED 211 10*3/uL (130-400); RED BLOOD COUNT 5.05 10*6/uL (4.10-5.10); RED CELL DISTRI WIDTH 13.5 % (0-14.5)
[2024-04-22 12:05] LABS: BUN 6 mg/dl (9-23); CHLORIDE 101 mmol/L (98-107); CHOLESTEROL 195 mg/dL (<200); POTASSIUM 3.9 mmol/L (3.4-5.1); TRIGLYCERIDES 517 mg/dl (<150)
== END | disposition home or self-care (01) ==
LOC: LAB 01:29 → RESCLI 01:29
PROVIDERS: ATTEND Internal Medicine
DX: Z00.00 Encounter for general adult medical examination without abnormal findings (principal); E66.9 Obesity, unspecified; J02.0 Streptococcal pharyngitis

== ENCOUNTER → 2024-04-29 | Outpatient (CLI) | payer OTHER ==
[2024-04-29 11:34] LABS: CHOLESTEROL 162 mg/dL (<200); LDL CHOLESTEROL 86 mg/dL (9-159); TRIGLYCERIDES 226 mg/dl (<150)
== END | disposition home or self-care (01) ==
LOC: LAB 10:45
PROVIDERS: ATTEND Internal Medicine
DX: E78.5 Hyperlipidemia, unspecified (principal)

== ENCOUNTER → 2024-07-25 | Outpatient (CLI) | payer OTHER | END | disposition home or self-care (01) | LOC: MRI 02:23 | PROVIDERS: ATTEND Psychiatry & Neurology Neurology | DX: R47.01 Aphasia (principal); R41.3 Other amnesia; G43.909 Migraine, unspecified, not intractable, without status migrainosus ==

== ENCOUNTER 2024-08-11 12:20 | Emergency (ER) | payer OTHER ==
[~2024-08-11] VITALS: Ht 160 cm; Wt 72.6 kg
[2024-08-11] MEDS ORDERED: PREDNISONE50 MG PO (12:39)
[2024-08-11] MEDS ORDERED: methylPREDNISolone sod succ 125 MG VIAL IM ONE (12:40)
== END 2024-08-11 15:25 | disposition home or self-care (01) ==
LOC: ED 12:20
DX: S76.012A Strain of muscle, fascia and tendon of left hip, initial encounter (principal); Z91.041 Radiographic dye allergy status; Z88.0 Allergy status to penicillin; Z91.018 Allergy to other foods; Z88.6 Allergy status to analgesic agent; Z79.899 Other long term (current) drug therapy; Z90.49 Acquired absence of other specified parts of digestive tract; Z87.891 Personal history of nicotine dependence; X50.0XXA Overexertion from strenuous movement or load, initial encounter; Y93.F2 Activity, caregiving, lifting; Y92.89 Other specified places as the place of occurrence of the external cause; Y99.8 Other external cause status

== ENCOUNTER 2024-11-06 11:44 | Emergency (ER) | payer OTHER ==
[~2024-11-06] VITALS: Ht 157.4 cm; Wt 72.6 kg
[~2024-11-06 11:44] MED LIST changes: +PREDNISONE50 MG PO
[2024-11-06] MEDS ORDERED: SODIUM CHLORIDE 0.9% 1,000 ML IV ONE (14:50)
[2024-11-06 15:02] LABS: BASO # 0.0 10*3/uL (0.0-0.1); BASO % 0.4 % (0.0-1.0); EOS # 0.2 10*3/uL (0.0-0.4); EOS % 1.4 % (1.0-4.0); MEAN CELL VOLUME 87.2 fl (81.0-99.0); MEAN CORPUSCULAR HGB 29.8 pg (27.0-31.0); MEAN PLATELET VOLUME 10.5 fl (9.6-12.3); MONO # 0.5 10*3/uL (0.1-1.0); MONO % 4.1 % (3.0-9.0); NEUT # 6.0 10*3/uL (2.3-7.9); NEUT % 53.2 % (47.0-73.0); NUCLEATED RED BLOOD CELL 0.0 % (0.0-0.0); NUCLEATED RED BLOOD CELL 0.0 10*3/uL (0.0-0.0); PLATELET COUNT AUTOMATED 184 10*3/uL (130-400); RED CELL DISTRI WIDTH 13.5 % (0-14.5)
[2024-11-06 15:25] LABS: BUN 8 mg/dl (9-23)
[2024-11-06] MEDS ORDERED: PREDNISONE20 M1 PO (16:37)
[2024-11-06] MEDS ORDERED: AVPAK AZITHROM250 M1 PO (16:37)
== END 2024-11-06 17:12 | disposition home or self-care (01) ==
LOC: ED 11:44
PROVIDERS: Emergency Medicine
DX: J40 Bronchitis, not specified as acute or chronic (principal); J02.9 Acute pharyngitis, unspecified; Z20.822 Contact with and (suspected) exposure to COVID-19; Z90.49 Acquired absence of other specified parts of digestive tract; Z88.0 Allergy status to penicillin; Z88.8 Allergy status to other drugs, medicaments and biological substances; Z91.018 Allergy to other foods

== ENCOUNTER 2024-12-29 10:28 | Emergency (ER) | payer OTHER ==
[~2024-12-29] VITALS: Ht 160 cm; Wt 72.6 kg
[~2024-12-29 10:28] MED LIST changes: +AVPAK AZITHROM250 M1 PO
[2024-12-29] MEDS ORDERED: Ondansetron Hydrochloride 4 MG TAB PO ONE (10:50)
[2024-12-29] MEDS ORDERED: Acetaminophen/Oxycodone 5 MG/325 MG TABLET PO ONE (10:50)
[2024-12-29] MEDS ORDERED: Ondansetron Hydrochloride 4 MG/2 ML VIAL IV ONE (14:15)
[2024-12-29] MEDS ORDERED: SODIUM CHLORIDE 0.9% 1,000 ML IV ONE (14:15)
[2024-12-29 14:27] LABS: BASO # 0.1 10*3/uL (0.0-0.1); BASO % 0.4 % (0.0-1.0); EOS # 0.2 10*3/uL (0.0-0.4); EOS % 1.8 % (1.0-4.0); MEAN CELL VOLUME 87.8 fl (81.0-99.0); MEAN CORPUSCULAR HGB 30.2 pg (27.0-31.0); MEAN PLATELET VOLUME 10.3 fl (9.6-12.3); MONO # 0.5 10*3/uL (0.1-1.0); MONO % 3.7 % (3.0-9.0); NEUT # 7.3 10*3/uL (2.3-7.9); NEUT % 58.8 % (47.0-73.0); NUCLEATED RED BLOOD CELL 0.0 % (0.0-0.0); NUCLEATED RED BLOOD CELL 0.0 10*3/uL (0.0-0.0); PLATELET COUNT AUTOMATED 182 10*3/uL (130-400); RED CELL DISTRI WIDTH 13.7 % (0-14.5)
[2024-12-29 14:56] LABS: BUN 8 mg/dl (9-23)
== END 2024-12-29 15:45 | disposition short-term general hospital (02) ==
LOC: ED 10:28
PROVIDERS: Emergency Medicine
DX: T83.32XA Displacement of intrauterine contraceptive device, initial encounter (principal); F17.200 Nicotine dependence, unspecified, uncomplicated; Z79.899 Other long term (current) drug therapy; Z88.0 Allergy status to penicillin; Z88.6 Allergy status to analgesic agent; Z91.041 Radiographic dye allergy status; Z90.49 Acquired absence of other specified parts of digestive tract; Y82.8 Other medical devices associated with adverse incidents; Y92.89 Other specified places as the place of occurrence of the external cause